=== PATIENT | male | born 1955 | race Caucasian/White ===

== ENCOUNTER → 2023-01-04 | Outpatient (CLI) | payer OTHER ==
[2023-01-04 16:35] LABS: African American GFR (CKD) >90 (>60 ml/min/1.73 sqM); Blood Urea Nitrogen 16 mg/dL (9-20); Non-African American GFR(CKD) >90 (>60 ml/min/1.73 sqM)
--- NOTE | 2023-01-04 23:30 | CT ---
EXAMINATION TYPE: CT abdomen wo/w con DATE OF EXAM: 01/04/2023 COMPARISON: None available. HISTORY: Hiatus hernia, epigastric pain and LLQ pain. CT DLP: 1480.6 mGycm Automated exposure control for dose reduction was used. TECHNIQUE: Helical acquisition of images was performed from the lung bases through the top of iliac crest to include entire abdomen. CONTRAST: Performed with Oral Contrast and with IV Contrast, patient injected with 100 ml mL of Isovue 300. FINDINGS: LOWER CHEST : The visualized lung bases are clear. There are no pleural or pericardial effusions. ABDOMEN: Liver and Biliary system: Normal. Adrenal glands: Normal. Kidneys and ureters: There is a 2 and 5 mm nonobstructing stone in the upper pole of the right kidne y. The kidneys and ureters otherwise appear unremarkable. Spleen: Multiple calcified granulomas are seen within the spleen. Pancreas: Normal. Gallbladder: Several gallstones are seen within the gallbladder. Lymph nodes, Peritoneum and mesentery: There is no mesenteric or retroperitoneal lymphadenopathy. Gastrointestinal tract: There are no dilated loops of bowel or free intraperitoneal air. . The appe ndix is normal. There is mild sigmoid colonic diverticulosis without evidence of diverticulitis. Aorta/IVC: No aortic aneurysm.. IVC normal. Abdominal wall: Normal. BONES: There are no osseous destructive lesions.. ADDITIONAL SIGNIFICANT FINDINGS: None. IMPRESSION: 1. Nonobstructing right renal stones.. 2. No bowel obstruction or appendicitis. 3. Cholelithiasis. 4. Diverticulosis without evidence of diverticulitis.
== END | disposition home or self-care (01) ==
LOC: RADCTMAIN 15:54
PROVIDERS: ATTEND Family Medicine
DX: N20.0 Calculus of kidney (principal); K80.20 Calculus of gallbladder without cholecystitis without obstruction; K44.9 Diaphragmatic hernia without obstruction or gangrene; M62.08 Separation of muscle (nontraumatic), other site; R10.13 Epigastric pain
CPT/HCPCS: 82565; 84520; 74170; 36415; Q9967

== ENCOUNTER → 2023-02-13 | Outpatient (CLI) | payer MEDICARE ==
--- NOTE | 2023-02-14 13:15 | CA ---
Exercise Stress Test Report Name: Mitch Giron Exam Date: 02/13/2023 11:13 Exam Location: [facility] Ht (in): 67 Wt (lb): 188 BSA: 1.97 Ordering Phys: Michael Worthy DO Referring Phys: BRYNN,, Technologist: Adams Garcia Age: 68 Gender: M : 1955 Procedure CPT: Indications: I10 ESSENTIAL (PRIMARY) HYPERTENSION ICD-10 Codes: Patient History: CHEST PAIN, DIFFICULTY IN BREATHING, HTN, ELEVATED CHOLESTEROL LEVELS, ASTHMA Medications: LISINOPRIL, ATORVASTATIN Meds past 24 hrs: Pretest Chest Pain: STRESS TEST Kush Protocol Exercise Duration (min:sec): 09:[address] Depressions (mm): Angina Score: Puckett Score: Resting HR (bpm): 84 Peak HR (bpm): 150 Resting BP (mmHg): 123 / 85 Peak BP (mmHg): 207 / 84 MPHR: 153 Target HR: 130 % MPHR: 98 METS: 10.7 Total Dose: Peak Dose: Atropine: Double Product: 16983 BP Response: Stress Termination: TARGET HR/MAX EXERTION Stress Symptoms: NO SYMPTOMS Stress Summary: The patient's target heart rate was achieved, The hemodynamic response to exercise was normal ECG ANALYSIS Resting ECG: Sinus rhythm. Normal conduction. No arrhythmias. Normal repolarization. Stress EC mm ST upsloping change in the inferolateral leads. CONCLUSIONS 1. Good exercise tolerance 2. Mildly positive electrocardiographic stress test with no symptoms 3. If clinically indicated an imaging stress test will be helpful Dr. Emilee Olvera MD (Electronically Signed) Final Date: 14 February 2023 13:14
== END | disposition home or self-care (01) ==
LOC: RADNMMAIN 10:42
PROVIDERS: ATTEND Family Medicine
DX: I10 Essential (primary) hypertension (principal); E78.2 Mixed hyperlipidemia; R06.02 Shortness of breath
CPT/HCPCS: 93017

== ENCOUNTER 2024-01-25 00:32 | Inpatient (IN) | payer MEDICARE, OTHER ==
--- NOTE | 2024-01-25 01:22 | ED ---
Abdominal Pain HPI - General Source: patient, RN notes reviewed Mode of arrival: ambulatory Limitations: no limitations <Alana Beasley - Last Filed: 01/25/24 02:55> <Hayden Clement - Last Filed: 01/25/24 22:37> - General Chief Complaint: Abdominal Pain Stated Complaint: Abominal Pain/Chest Pain Time Seen by Provider: 01/25/24 01:22 - History of Present Illness Initial Comments: 69-year-old male presenting to the ER with a chief complaint of epigastric abdominal pain. Patient is following up with Dr. Monahan for hiatal hernia and gallstones. Patient states after eating supper tonight he started to experience extreme pain to his epigastric region. He denies any radiation of the pain. He reports he did have a bowel movement which was "normal. Denies any melena or hematochezia. Patient also reports he made himself throw up to see if that would help with the pain. Patient did take 1 Tums without relief. He denies any chest pain, shortness of breath, dizziness, lightheadedness, urinary complaints or peripheral edema. (Alana Beasley) - Related Data Home Medications Medication Instructions Recorded Confirmed Atorvastatin [Lipitor] 20 mg PO HS 01/25/24 01/25/24 Escitalopram [Lexapro] 10 mg PO DAILY 01/25/24 01/25/24 hydroCHLOROthiazide [Hydrodiuril] 25 mg PO DAILY 01/25/24 01/25/24 traZODone HCL [Desyrel] 50 - 75 mg PO HS 01/25/24 01/25/24 Allergies Allergy/AdvReac Type Severity Reaction Status Date / Time codeine AdvReac Nausea & Verified 01/25/24 12:44 Vomiting Review of Systems ROS Other: All systems not noted in ROS Statement are negative. <Alana Beasley - Last Filed: 01/25/24 02:55> ROS Other: All systems not noted in ROS Statement are negative. <Hayden Clement - Last Filed: 01/25/24 22:37> ROS Statement: Those systems with pertinent positive or pertinent negative responses have been documented in the HPI. Past Medical History Additional Past Medical History / Comment(s): kidney stones, gallstones, hiatal hernia History of Any Multi-Drug Resistant Organisms: None Reported Past Surgical History: Tonsillectomy Additional Past Surgical History / Comment(s): nose surgery, mastoid surgery Past Psychological History: No Psychological Hx Reported Smoking Status: Never smoker Past Alcohol Use History: None Reported Past Drug Use History: None Reported <Alana Beasley - Last Filed: 01/25/24 02:55> General Exam Limitations: no limitations General appearance: alert, in no apparent distress Respiratory exam: Present: normal lung sounds bilaterally. Absent: respiratory distress, wheezes, rales, rhonchi, stridor Cardiovascular Exam: Present: regular rate, normal rhythm, normal heart sounds. Absent: systolic murmur, diastolic murmur, rubs, gallop, clicks GI/Abdominal exam: Present: soft, tenderness (epigastric ), normal bowel sounds Extremities exam: Present: normal inspection, full ROM, normal capillary refill. Absent: tenderness, pedal edema, joint swelling, calf tenderness Neurological exam: Present: alert, oriented X3, CN II-XII intact Skin exam: Present: warm, dry, intact, normal color. Absent: rash <Adore Beasleynn - Last Filed: 01/25/24 02:55> General appearance: alert, in no apparent distress Head exam: Present: atraumatic, normocephalic, normal inspection Eye exam: Present: normal appearance, PERRL, EOMI. Absent: scleral icterus, conjunctival injection, periorbital swelling ENT exam: Present: normal exam, mucous membranes moist Neck exam: Present: normal inspection. Absent: tenderness, meningismus, lymphadenopathy Respiratory exam: Present: normal lung sounds bilaterally. Absent: respiratory distress, wheezes, rales, rhonchi, stridor Cardiovascular Exam: Present: regular rate, normal rhythm, normal heart sounds. Absent: systolic murmur, diastolic murmur, rubs, gallop, clicks GI/Abdominal exam: Present: soft, normal bowel sounds. Absent: distended, tenderness, guarding, rebound, rigid Extremities exam: Present: normal inspection, full ROM, normal capillary refill. Absent: tenderness, pedal edema, joint swelling, calf tenderness Back exam: Present: normal inspection Neurological exam: Present: alert, oriented X3, CN II-XII intact Psychiatric exam: Present: normal affect, normal mood Skin exam: Present: warm, dry, intact, normal color. Absent: rash <Hayden Clement - Last Filed: 01/25/24 22:37> Course <Hayden Clement - Last Filed: 01/25/24 22:37> Vital Signs 01/25/24 01/25/24 00:33 05:29 Temperature 97.7 F Pulse Rate 66 66 Respiratory 18 18 Rate Blood Pressure 169/93 144/90 O2 Sat by Pulse 100 95 Oximetry - Reevaluation(s) Reevaluation #1: Records reviewed (Hayden Clement) Reevaluation #2: Patient symptoms improving (Hayden Clement) - Consultations Consultation #1: Spoke with on-call surgery who will observe this patient (Hayden Clement) Medical Decision Making - Lab Data Result diagrams: 01/25/24 01:42 01/25/24 01:42 - EKG Data -: EKG Interpreted by Me <Alana Beasley - Last Filed: 01/25/24 02:55> - Lab Data Result diagrams: 01/25/24 05:29 01/25/24 05:29 - Radiology Data Radiology results: report reviewed (CT abdomen pelvis positive for cholecystitis), image reviewed <Hayden Clement - Last Filed: 01/25/24 22:37> - Medical Decision Making Was pt. sent in by a medical professional or institution (Dr. PA, OFFSET LABEL REWINDER, urgent care, hospital, or intermediate...) When possible be specific @ -No Did you speak to anyone other than the patient for history (EMS, parent, family, police, friend...)? What history was obtained from this source @ -No Did you review nursing and triage notes (agree or disagree)? Why? @ -I reviewed and agree with nursing and triage notes Were old charts reviewed (outside hosp., previous admission, EMS record, old EKG, old radiological studies, urgent care reports/EKG's, intermediate records)? Report findings @ -No old charts were reviewed Differential Diagnosis (chest pain, altered mental status, abdominal pain women, abdominal pain men, vaginal bleeding, weakness, fever, dyspnea, syncope, headache, dizziness, GI bleed, back pain, seizure, CVA, palpatations, mental health, musculoskeletal)? @ -Differential Abdominal Pain Men:Appendicitis, cholecystitis, diverticulosis, ischemic bowel, pancreatitis, hepatitis, UTI, gastroenteritis, AAA, incarcerated hernia, bowel obstruction, constipation, inflammatory bowel, hepatitis, peptic ulcer disease, splenic infarction, perforated viscus, testicular torsion, this is not meant to be an all-inclusive list EKG interpreted by me (3pts min.). @ -As above X-rays interpreted by me (1pt min.). @ -None done CT interpreted by me (1pt min.). @ -Pending U/S interpreted by me (1pt. min.). @ -None done What testing was considered but not performed or refused? (CT, X-rays, U/S, labs)? Why? @ -None What meds were considered but not given or refused? Why? @ -None Did you discuss the management of the patient with other professionals (professionals i.e. , PA, OFFSET LABEL REWINDER, lab, RT, psych nurse, rn social work, rate examiner, te acher, railway patrol officer, case picker)? Give summary @ -No Was smoking cessation discussed for >3mins.? @ -No Was critical care preformed (if so, how long)? @ -No Were there social determinants of health that impacted care today? How? (Homelessness, low income, unemployed, alcoholism, drug addiction, transportation, low edu. Level, literacy, decrease access to med. care, prison, rehab)? @ -No Was there de-escalation of care discussed even if they declined (Discuss DNR or withdrawal of care, Hospice)? DNR status @ -No What co-morbidities impacted this encounter? (DM, HTN, Smoking, COPD, CAD, C ancer, CVA, ARF, Chemo, Hep., AIDS, mental health diagnosis, sleep apnea, morbid obesity)? @ -None Was patient admitted / discharged? Hospital course, mention meds given and route, prescriptions, significant lab abnormalities, going to OR and other pertinent info. @ -69-year-old male presented to ER with a chief complaint of epigastric abdominal pain. History and physical exam completed. Vitals within normal limits. Patient in no signs of acute distress. Exquisite tender to epigastric region. Normal bowel sounds. No rebound or guarding. Laboratory studies and CT obtained. Patient received IV toradol, zofran and IV fluids. Patient signed out to Dr. Clement at shift completion pending CT results and disposition. (Alana Beasley) 69 male with known gallbladder colic coming in for gallbladder pain with CT evidence of cholecystitis (Hayden Clement) - Lab Data Lab Results 01/25/24 01/25/24 01/25/24 Range/Units 01:42 01:42 01:42 WBC 11.5 H (3.8-10.6) k/uL RBC 4.80 (4.30-5.90) m/uL Hgb 14.6 (13.0-17.5) gm/dL Hct 43.0 (39.0-53.0) % MCV 89.7 (80.0-100.0) fL MCH 30.5 (25.0-35.0) pg MCHC 34.0 (31.0-37.0) g/dL RDW 12.7 (11.5-15.5) % Plt Count 299 (150-450) k/uL MPV 6.5 Neutrophils % 81 % Lymphocytes % 10 % Monocytes % 5 % Eosinophils % 2 % Basophils % 0 % Neutrophils # 9.3 H (1.3-7.7) k/uL Lymphocytes # 1.1 (1.0-4.8) k/uL Monocytes # 0.6 (0-1.0) k/uL Eosinophils # 0.2 (0-0.7) k/uL Basophils # 0.0 (0-0.2) k/uL Sodium 137 (137-145) mmol/L Potassium 3.7 (3.5-5.1) mmol/L Chloride 108 H (98-107) mmol/L Carbon Dioxide 23 (22-30) mmol/L Anion Gap 6 mmol/L BUN 24 H (9-20) mg/dL Creatinine 0.99 (0.66-1.25) mg/dL Est GFR (CKD-EPI)AfAm >90 (>60 ml/min/1.73 sqM) Est GFR (CKD-EPI)NonAf 78 (>60 ml/min/1.73 sqM) Glucose 117 H (74-99) mg/dL Plasma Lactic Acid Basim 1.7 (0.7-2.0) mmol/L Calcium 9.5 (8.4-10.2) mg/dL Total Bilirubin 0.8 (0.2-1.3) mg/dL AST 26 (17-59) U/L ALT 27 (4-49) U/L Alkaline Phosphatase 59 (38-126) U/L Total Protein 6.5 (6.3-8.2) g/dL Albumin 4.1 (3.5-5.0) g/dL Amylase 56 (30-110) U/L Lipase 89 (23-300) U/L Urine Color Urine Appearance (Clear) Urine pH (5.0-8.0) Ur Specific [place] (1.001-1.035) Urine Protein (Negative) Urine Glucose (UA) (Negative) Urine Ketones (Negative) Urine Blood (Negative) Urine Nitrite (Negative) Urine Bilirubin (Negative) Urine Urobilinogen (<2.0) mg/dL Ur Leukocyte Esterase (Negative) 01/25/24 Range/Units 02:01 WBC (3.8-10.6) k/uL RBC (4.30-5.90) m/uL Hgb (13.0-17.5) gm/dL Hct (39.0-53.0) % MCV (80.0-100.0) fL MCH (25.0-35.0) pg MCHC (31.0-37.0) g/dL RDW (11.5-15.5) % Plt Count (150-450) k/uL MPV Neutrophils % % Lymphocytes % % Monocytes % % Eosinophils % % Basophils % % Neutrophils # (1.3-7.7) k/uL Lymphocytes # (1.0-4.8) k/uL Monocytes # (0-1.0) k/uL Eosinophils # (0-0.7) k/uL Basophils # (0-0.2) k/uL Sodium (137-145) mmol/L Potassium (3.5-5.1) mmol/L Chloride (98-107) mmol/L Carbon Dioxide (22-30) mmol/L Anion Gap mmol/L BUN (9-20) mg/dL Creatinine (0.66-1.25) mg/dL Est GFR (CKD-EPI)AfAm (>60 ml/min/1.73 sqM) Est GFR (CKD-EPI)NonAf (>60 ml/min/1.73 sqM) Glucose (74-99) mg/dL Plasma Lactic Acid Basim (0.7-2.0) mmol/L Calcium (8.4-10.2) mg/dL Total Bilirubin (0.2-1.3) mg/dL AST (17-59) U/L ALT (4-49) U/L Alkaline Phosphatase (38-126) U/L Total Protein (6.3-8.2) g/dL Albumin (3.5-5.0) g/dL Amylase (30-110) U/L Lipase (23-300) U/L Urine Color Colorless Urine Appearance Clear (Clear) Urine pH 7.0 (5.0-8.0) Ur Specific [place] 1.021 (1.001-1.035) Urine Protein Negative (Negative) Urine Glucose (UA) Negative (Negative) Urine Ketones Negative (Negative) Urine Blood Negative (Negative) Urine Nitrite Negative (Negative) Urine Bilirubin Negative (Negative) Urine Urobilinogen <2.0 (<2.0) mg/dL Ur Leukocyte Esterase Negative (Negative) - EKG Data EKG Comments: EKG taken at 1: 19 showing a normal sinus rhythm with no acute ST segment abnormalities. Inverted T waves in lead III. Ventricular rate 62, OK interval 122, QRS duration 91, QT/QTc 411/415. (Alana Beasley) Disposition <Alana Beasley - Last Filed: 01/25/24 02:55> Is patient prescribed a controlled substance at d/c from ED?: No <Hayden Clement - Last Filed: 01/25/24 22:37> Clinical Impression: Abdominal pain, Cholecystitis Disposition: ADMITTED IP TO THIS HOSP Condition: Good
[2024-01-25] MEDS: ONDANSETRON 4 MG/2 ML VIAL IVP STA (01:58)
[2024-01-25] MEDS: KETOROLAC 15 MG/ML 1 ML VIAL IVP STA (01:58)
[2024-01-25] MEDS: SODIUM CHLORIDE 0.9% 1,000 ML IV STA (01:59)
[2024-01-25 02:01] LABS: Basophils % (A) 0 %; Eosinophils # (A) 0.2 k/uL (0-0.7); Eosinophils % (A) 2 %; HGB 14.6 gm/dL (13.0-17.5); Lymphocytes # (A) 1.1 k/uL (1.0-4.8); Lymphocytes % (A) 10 %; MCH 30.5 pg (25.0-35.0); MCV 89.7 fL (80.0-100.0); Mean Platelet Volume 6.5; Monocytes # (A) 0.6 k/uL (0-1.0); Monocytes % (A) 5 %; Neutrophils # (A) 9.3 k/uL (1.3-7.7); Neutrophils % (A) 81 %; Platelet Count 299 k/uL (150-450); RDW 12.7 % (11.5-15.5); WBC 11.5 k/uL (3.8-10.6)
[2024-01-25 02:12] LABS: ALT 27 U/L (4-49); AST 26 U/L (17-59); African American GFR (CKD) >90 (>60 ml/min/1.73 sqM); Albumin 4.1 g/dL (3.5-5.0); Alkaline Phosphatase 59 U/L (38-126); Amylase 56 U/L (30-110); Anion Gap 6 mmol/L; Blood Urea Nitrogen 24 mg/dL (9-20); Calcium 9.5 mg/dL (8.4-10.2); Carbon Dioxide 23 mmol/L (22-30); Chloride 108 mmol/L (98-107); Glucose 117 mg/dL (74-99); Lipase 89 U/L (23-300); Non-African American GFR(CKD) 78 (>60 ml/min/1.73 sqM); Potassium 3.7 mmol/L (3.5-5.1); Sodium 137 mmol/L (137-145); Total Bilirubin 0.8 mg/dL (0.2-1.3); Total Protein 6.5 g/dL (6.3-8.2)
[2024-01-25 03:08] LABS: Appearance,Urine Clear (Clear); Bilirubin,Urine Negative (Negative); Blood,Urine Negative (Negative); Color,Urine Colorless; Glucose,Urine (UA) Negative (Negative); Ketones,Urine Negative (Negative); Leukocyte Esterase,Urine Negative (Negative); Nitrite,Urine Negative (Negative); Protein,Urine Negative (Negative); Specific Gravity,Urine 1.021 (1.001-1.035); Urobilinogen,Urine <2.0 mg/dL (<2.0)
--- NOTE | 2024-01-25 03:37 | CT ---
EXAM: CT Abdomen and Pelvis With Intravenous Contrast CLINICAL HISTORY: ITS.REASON CT Reason: epigastric abd pain TECHNIQUE: Axial computed tomography images of the abdomen and pelvis with intravenous contrast. CTDI is 9.3 mGy and DLP is 526.2 mGy-cm. This CT exam was performed using one or more of the following dose reduction techniques: automated exposure control, adjustment of the mA and/or kV according to patient size, and/or use of iterative reconstruction technique. COMPARISON: No previous studies. FINDINGS: Lung bases: COPD. Scarring and subsegmental atelectasis near the lung bases. Heart: Mild cardiomegaly. Mediastinum: Possible distal esophagitis. ABDOMEN: Liver: Fatty liver. Gallbladder and bile ducts: Inflammatory changes wall thickening and pericholecystic fluid noted raising concern for acute cholecystitis. Surgical consultation is advised. Cholelithiasis. Additionally, a 0.3 cm gallstone is noted within the cystic duct seen on coronal image 38. Pancreas: See below. Spleen: Unremarkable. No splenomegaly. Adrenals: Adrenal glands, the head, body, tail of the pancreas are unremarkable. Kidneys and ureters: Nonobstructing right renal cacti the largest of which measures 0.6 cm in extent. Nonspecific stranding about the perinephric spaces. Stomach and bowel: Moderate atrophy of stool throughout the colon. Diverticulosis without diverticulitis. No obstruction. PELVIS: Appendix: No findings to suggest acute appendicitis. Bladder: Unremarkable. No mass. Reproductive: Enlargement energies prostate gland. ABDOMEN and PELVIS: Intraperitoneal space: Unremarkable. No free air. No significant fluid collection. Bones/joints: No acute fracture. No dislocation. No spondylolysis. Soft tissues: Ischiorectal fat is clean. Vasculature: Portal vein is patent. Flow is noted within the celiac, SMA, the renal arteries, and JEFFERSON. Atherosclerotic disease of the abdominal area without change in caliber. No abdominal aortic aneurysm. Lymph nodes: Unremarkable. No retroperitoneal lymphadenopathy. IMPRESSION: 1. There is cholelithiasis. 2. Wall thickening of the gallbladder. 3. Inflammatory changes about the gallbladder and pericholecystic fluid. 4. Findings are most compatible with acute cholecystitis. 5. Surgical consultation is advised. 6. Additionally, there is a gallstone within the cystic duct is seen on coronal image 38.
[2024-01-25] MEDS: AMPICILLIN-SULBACTAM 3 GM in SODIUM CHLORIDE 0.9% 100 ML IVPB STA (04:44)
[2024-01-25] MEDS: HYDROmorphone 1 MG/ML 1 ML SYRINGE IVP STA (04:44)
[2024-01-25] MEDS ORDERED: NALOXONE 0.4 MG/ML 1 ML VIAL IV PRN (04:57)
[2024-01-25] MEDS: SODIUM CHLORIDE 0.9% 1,000 ML IV SCH (05:29)
[2024-01-25 06:04] LABS: Basophils % (A) 0 %; Eosinophils # (A) 0.3 k/uL (0-0.7); Eosinophils % (A) 3 %; HCT 38.7 % (39.0-53.0); HGB 13.7 gm/dL (13.0-17.5); Lymphocytes # (A) 1.5 k/uL (1.0-4.8); Lymphocytes % (A) 16 %; MCH 32.1 pg (25.0-35.0); MCHC 35.5 g/dL (31.0-37.0); MCV 90.5 fL (80.0-100.0); Mean Platelet Volume 7.1; Monocytes # (A) 0.6 k/uL (0-1.0); Monocytes % (A) 6 %; Neutrophils % (A) 73 %; Platelet Count 267 k/uL (150-450); RBC 4.28 m/uL (4.30-5.90); RDW 12.7 % (11.5-15.5); WBC 9.5 k/uL (3.8-10.6)
[2024-01-25 07:08] LABS: ALT 23 U/L (4-49); AST 25 U/L (17-59); African American GFR (CKD) >90 (>60 ml/min/1.73 sqM); Albumin 3.5 g/dL (3.5-5.0); Alkaline Phosphatase 49 U/L (38-126); Anion Gap 5 mmol/L; Blood Urea Nitrogen 24 mg/dL (9-20); Calcium 8.6 mg/dL (8.4-10.2); Carbon Dioxide 23 mmol/L (22-30); Chloride 108 mmol/L (98-107); Glucose 106 mg/dL (74-99); Magnesium 2.1 mg/dL (1.6-2.3); Non-African American GFR(CKD) >90 (>60 ml/min/1.73 sqM); Phosphorus 3.3 mg/dL (2.5-4.5); Potassium 3.8 mmol/L (3.5-5.1); Sodium 136 mmol/L (137-145); Total Bilirubin 0.8 mg/dL (0.2-1.3); Total Protein 5.8 g/dL (6.3-8.2)
--- NOTE | 2024-01-25 10:09 | US ---
EXAMINATION TYPE: US gallbladder DATE OF EXAM: 01/25/2024 COMPARISON: NONE CLINICAL INDICATION: Male, 69 years old with history of pain; Pain TECHNIQUE: Grayscale and color Doppler imaging of the right upper quadrant was performed. FINDINGS: EXAM MEASUREMENTS: Liver Length: 14.1 cm Gallbladder Wall: .5 cm CBD: .5 cm Right Kidney: 11.8 x 4.8 x 3.9 cm Pancreas: Obscured by bowel gas Liver: Increased attenuation Gallbladder: Stones seen thickened wall pericholecystic fluid seen. Evidence for sonographic Kendrick's sign: no CBD: limited due to bowel gas stone on ct scan not seen on ultrasound. Right Kidney: wnl IMPRESSION: 1. Gallstones with minimal pericholecystic fluid and gallbladder wall thickening. The sonographic Mur phy sign is negative. There is no biliary ductal dilatation. 2. Pancreas not evaluated and is obscured by bowel gas. 3. Unremarkable liver and right kidney. [facility], , 01/25/2024 10:07 AM
--- NOTE | 2024-01-25 11:24 | P.GSHP ---
History of Present Illness H&P Date: 01/25/24 69-year-old male presenting to the ER with a chief complaint of epigastric abdominal pain. Patient states after eating dinner tonight he started to experience extreme pain to his epigastric region. He denies any radiation of the pain. He reports he did have a bowel movement which was "normal. Denies any melena or hematochezia. Patient also reports he made himself throw up to see if that would help with the pain. Patient did take 1 Tums without relief. He denies any chest pain, shortness of breath, dizziness, lightheadedness, urinary complaints or peripheral edema. He had a CT-AP which showed gallbladder wall thickening and stones concerning for cholecystitis Review of Systems ROS Other: All systems not noted in ROS Statement are negative. Past Medical History Additional Past Medical History / Comment(s): kidney stones, gallstones, hiatal hernia History of Any Multi-Drug Resistant Organisms: None Reported Past Surgical History: Tonsillectomy Additional Past Surgical History / Comment(s): nose surgery, mastoid surgery Past Psychological History: No Psychological Hx Reported Smoking Status: Never smoker Past Alcohol Use History: None Reported Past Drug Use History: None Reported General Exam Limitations: no limitations General appearance: alert, in no apparent distress Respiratory exam: Present: normal lung sounds bilaterally. Absent: respiratory distress, wheezes, rales, rhonchi, stridor Cardiovascular Exam: Present: regular rate, normal rhythm, normal heart sounds. Absent: systolic murmur, diastolic murmur, rubs, gallop, clicks GI/Abdominal exam: Present: soft, tenderness (epigastric ), normal bowel sounds Extremities exam: Present: normal inspection, full ROM, normal capillary refill. Absent: tenderness, pedal edema, joint swelling, calf tenderness Neurological exam: Present: alert, oriented X3, CN II-XII intact Skin exam: Present: warm, dry, intact, normal color. Absent: rash 69 year old male with cholecystitis -Plan for Cholecystectomy 01/25 -LFD, NPO/midnight -US pending -Unasyn -Pain and Nausea Control -Medicine consult for medical management Jose A Harp DO [facility] [phone] Past Medical History Additional Past Medical History / Comment(s): kidney stones, gallstones, hiatal hernia History of Any Multi-Drug Resistant Organisms: None Reported Past Surgical History: Tonsillectomy Additional Past Surgical History / Comment(s): nose surgery, mastoid surgery Past Psychological History: No Psychological Hx Reported Smoking Status: Never smoker Past Alcohol Use History: None Reported Past Drug Use History: None Reported Medications and Allergies Allergies Allergy/AdvReac Type Severity Reaction Status Date / Time codeine AdvReac Nausea & Verified 01/25/24 00:38 Vomiting Surgical - Exam Vital Signs Temp Pulse Resp BP Pulse Ox 97.7 F 66 18 169/93 100 01/25/24 00:33 01/25/24 00:33 01/25/24 00:33 01/25/24 00:33 01/25/24 00:33 Results - Labs 01/25/24 05:29 01/25/24 05:29 Abnormal Lab Results - Last 24 Hours (Table) 01/25/24 01/25/24 01/25/24 Range/Units 01:42 01:42 05:29 WBC 11.5 H (3.8-10.6) k/uL RBC 4.28 L (4.30-5.90) m/uL Hct 38.7 L (39.0-53.0) % Neutrophils # 9.3 H (1.3-7.7) k/uL Sodium (137-145) mmol/L Chloride 108 H (98-107) mmol/L BUN 24 H (9-20) mg/dL Glucose 117 H (74-99) mg/dL Total Protein (6.3-8.2) g/dL 01/25/24 Range/Units 05:29 WBC (3.8-10.6) k/uL RBC (4.30-5.90) m/uL Hct (39.0-53.0) % Neutrophils # (1.3-7.7) k/uL Sodium 136 L (137-145) mmol/L Chloride 108 H (98-107) mmol/L BUN 24 H (9-20) mg/dL Glucose 106 H (74-99) mg/dL Total Protein 5.8 L (6.3-8.2) g/dL Diabetes panel 01/25/24 01/25/24 Range/Units 01:42 05:29 Sodium 137 136 L (137-145) mmol/L Potassium 3.7 3.8 (3.5-5.1) mmol/L Chloride 108 H 108 H (98-107) mmol/L Carbon Dioxide 23 23 (22-30) mmol/L BUN 24 H 24 H (9-20) mg/dL Creatinine 0.99 0.83 (0.66-1.25) mg/dL Glucose 117 H 106 H (74-99) mg/dL Calcium 9.5 8.6 (8.4-10.2) mg/dL AST 26 25 (17-59) U/L ALT 27 23 (4-49) U/L Alkaline Phosphatase 59 49 (38-126) U/L Total Protein 6.5 5.8 L (6.3-8.2) g/dL Albumin 4.1 3.5 (3.5-5.0) g/dL Calcium panel 01/25/24 01/25/24 Range/Units 01:42 05:29 Calcium 9.5 8.6 (8.4-10.2) mg/dL Phosphorus 3.3 (2.5-4.5) mg/dL Albumin 4.1 3.5 (3.5-5.0) g/dL Pituitary panel 01/25/24 01/25/24 Range/Units 01:42 05:29 Sodium 137 136 L (137-145) mmol/L Potassium 3.7 3.8 (3.5-5.1) mmol/L Chloride 108 H 108 H (98-107) mmol/L Carbon Dioxide 23 23 (22-30) mmol/L BUN 24 H 24 H (9-20) mg/dL Creatinine 0.99 0.83 (0.66-1.25) mg/dL Glucose 117 H 106 H (74-99) mg/dL Calcium 9.5 8.6 (8.4-10.2) mg/dL Adrenal panel 01/25/24 01/25/24 Range/Units 01:42 05:29 Sodium 137 136 L (137-145) mmol/L Potassium 3.7 3.8 (3.5-5.1) mmol/L Chloride 108 H 108 H (98-107) mmol/L Carbon Dioxide 23 23 (22-30) mmol/L BUN 24 H 24 H (9-20) mg/dL Creatinine 0.99 0.83 (0.66-1.25) mg/dL Glucose 117 H 106 H (74-99) mg/dL Calcium 9.5 8.6 (8.4-10.2) mg/dL Total Bilirubin 0.8 0.8 (0.2-1.3) mg/dL AST 26 25 (17-59) U/L ALT 27 23 (4-49) U/L Alkaline Phosphatase 59 49 (38-126) U/L Total Protein 6.5 5.8 L (6.3-8.2) g/dL Albumin 4.1 3.5 (3.5-5.0) g/dL
--- NOTE | 2024-01-25 15:50 | P.CONS ---
History of Present Illness - Reason for Consult Consult date: 01/25/24 - History of Present Illness 69 year old M with PMH of HTN, HLD, Insomnia presents to the ED for abdominal pain. Epigastric, started at 6PM last night after finishing dinner. Described as sharp and stabbing, radiating to the back. One episode of nausea and vomiting. No fever or chills. This prompted him to come to the ED. In the ED he underwent extensive evaluation. BP 169/93, HR 66, RR 18, T 97.7F, 100% on RA. CBC, Coag panel, CMP significant for WBC 11.5, Cl 108, BUN 24, glu 117. Lactic acid 1.7. Amylase 56, Lipase 89. UA negative. EKG sinus rhythm. CT AP acute cholecystitis. Surgery consulted, plans for OR tomorrow. General: non toxic, no distress, appears at stated age Derm: warm, dry Head: atraumatic, normocephalic, symmetric Eyes: EOMI, no lid lag, anicteric sclera Mouth: no lip lesion, mucus membranes moist Cardiovascular: S1 S2 reg. No murmurs, rubs, gallops Lungs: Clear to auscultation bilaterally, no accessory muscle use Ext: no gross muscle atrophy, no edema, no contractures Neuro: no focal neuro deficits Psych: Alert, oriented, appropriate affect Based on my assessment of this patient, this patient meets a high complexity level of care. Acute cholecystitis: Unasyn 3g IV TID. Toradol 15 mg IV Q6H PRN. Dilaudid 1 mg IV Q3H PRN. Zofran 4 mg IV TID PRN. NS at 130 cc/hr. Plans for OR tomorrow HTN: HCTZ 12.5 mg PO QD. HLD: Lipitor 20 mg PO QHS. Depression: Lexapro 10 mg PO QD. Insomnia: Trazadone 50 mg PO QHS. CODE STATUS: FULL CODE DVT Prophylaxis: Lovenox SQ GI Prophylaxis: Designated medical POA if patient is not able to make medical decisions for themselves: I have reviewed the following educational consultant notes: Surgery. I have reviewed the results of the following tests: As above. I have ordered the following tests: I have discussed the care of this patient with the following independent historian: DOLLY. I have independently interpreted the following test below: EKG. I have discussed the management of this patient with the following physician: Past Medical History Additional Past Medical History / Comment(s): kidney stones, gallstones, hiatal hernia History of Any Multi-Drug Resistant Organisms: None Reported Past Surgical History: Tonsillectomy Additional Past Surgical History / Comment(s): nose surgery, mastoid surgery Past Psychological History: No Psychological Hx Reported Smoking Status: Never smoker Past Alcohol Use History: None Reported Past Drug Use History: None Reported Medications and Allergies Home Medications Medication Instructions Recorded Confirmed Type Atorvastatin [Lipitor] 20 mg PO HS 01/25/24 01/25/24 History Escitalopram [Lexapro] 10 mg PO DAILY 01/25/24 01/25/24 History hydroCHLOROthiazide [Hydrodiuril] 25 mg PO DAILY 01/25/24 01/25/24 History traZODone HCL [Desyrel] 50 - 75 mg PO HS 01/25/24 01/25/24 History Allergies Allergy/AdvReac Type Severity Reaction Status Date / Time codeine AdvReac Nausea & Verified 01/25/24 12:44 Vomiting Physical Exam Vitals: Vital Signs Temp Pulse Pulse Resp BP BP Pulse Ox 01/25/24 13:55 98.2 F 72 18 137/71 93 L 01/25/24 07:15 97.8 F 64 18 144/73 94 L 01/25/24 05:51 98.0 F 73 145/88 94 L 01/25/24 05:29 66 18 144/90 95 01/25/24 00:33 97.7 F 66 18 169/93 100 Intake and Output 01/25/24 01/25/24 01/25/24 06:59 14:59 22:59 Other: # Voids 0 Weight 79.379 kg Results CBC & Chem 7: 01/25/24 05:29 01/25/24 05:29 Labs: Abnormal Lab Results - Last 24 Hours (Table) 01/25/24 01/25/24 01/25/24 Range/Units 01:42 01:42 05:29 WBC 11.5 H (3.8-10.6) k/uL RBC 4.28 L (4.30-5.90) m/uL Hct 38.7 L (39.0-53.0) % Neutrophils # 9.3 H (1.3-7.7) k/uL Sodium (137-145) mmol/L Chloride 108 H (98-107) mmol/L BUN 24 H (9-20) mg/dL Glucose 117 H (74-99) mg/dL Total Protein (6.3-8.2) g/dL 01/25/24 Range/Units 05:29 WBC (3.8-10.6) k/uL RBC (4.30-5.90) m/uL Hct (39.0-53.0) % Neutrophils # (1.3-7.7) k/uL Sodium 136 L (137-145) mmol/L Chloride 108 H (98-107) mmol/L BUN 24 H (9-20) mg/dL Glucose 106 H (74-99) mg/dL Total Protein 5.8 L (6.3-8.2) g/dL
[2024-01-25] MEDS: hydroCHLOROthiazide 25 MG TAB PO SCH (16:57)
[2024-01-25] MEDS: LORATADINE 10 MG TAB PO SCH (16:57)
[2024-01-25] MEDS: AMPICILLIN-SULBACTAM 3 GM in SODIUM CHLORIDE 0.9% 100 ML IVPB SCH (16:57)
[2024-01-25] MEDS: KETOROLAC 15 MG/ML 1 ML VIAL IVP PRN (21:04)
[2024-01-25] MEDS: traZODone HCL 50 MG TAB PO SCH (21:06)
[2024-01-25] MEDS: DOCUSATE 100 MG CAP PO PRN (21:06)
[2024-01-25] MEDS: ATORVASTATIN 20 MG TAB PO SCH (21:06)
[2024-01-26] MEDS: ENOXAPARIN 40 MG/0.4 ML SYRINGE SQ SCH (08:41)
[2024-01-26] MEDS: ESCITALOPRAM 10 MG TAB PO SCH (08:41)
[2024-01-26 10:00] LABS: Basophils # (A) 0.04 X 10*3/uL (0.00-0.10); Basophils % (A) 0.5 %; Eosinophils # (A) 0.54 X 10*3/uL (0.04-0.35); Eosinophils % (A) 6.1 %; HCT 37.9 % (39.6-50.0); Lymphocytes # (A) 1.78 X 10*3/uL (0.90-5.00); Lymphocytes % (A) 20.2 %; MCH 30.7 pg (27.0-32.0); MCHC 34.3 g/dL (32.0-37.0); MCV 89.4 FL (80.0-97.0); Mean Platelet Volume 8.9 FL (9.5-12.2); Monocytes % (A) 11.4 %; NRBC Per 100 WBC 0 X 10*3/uL (0.00-0.01); Neutrophils # (A) 5.39 X 10*3/uL (1.80-7.70); Neutrophils % (A) 61.2 %; Platelet Count 204 X 10*3/uL (140-440); RBC 4.24 X 10*6/uL (4.40-5.60); RDW 13.2 % (11.5-14.5)
[2024-01-26] MEDS ORDERED: LIDOCAINE 1% INJ 10MG/ML (20 ML MDV) ONE (10:00)
[2024-01-26] MEDS ORDERED: GLYCOPYRROLATE 0.2 MG/ML 2 ML VIAL ONE (10:00)
[2024-01-26] MEDS ORDERED: ROCURONIUM 10 MG/ML (5 ML VIAL) IV ONE (10:00)
[2024-01-26] MEDS ORDERED: SUCCINYLCHOLINE CHLORIDE 200 MG/10 ML VIAL IV ONE (10:00)
[2024-01-26] MEDS ORDERED: fentaNYL (PF) 50 MCG/ML 2 ML AMP ONE (10:00)
[2024-01-26] MEDS ORDERED: HYDROmorphone (PF) 1 MG/ML ONE (10:00)
[2024-01-26] MEDS ORDERED: MIDAZOLAM 2 MG/2 ML VIAL ONE (10:00)
[2024-01-26] MEDS: SODIUM CHLORIDE 0.9% 1,000 ML IV ONE (10:00)
[2024-01-26] MEDS ORDERED: NEOSTIGMINE 1 MG/ML 10 ML VIAL ONE (10:00)
[2024-01-26] MEDS ORDERED: ceFAZolin 1 GM/50 ML BAG (PMX) ONE (10:00)
[2024-01-26] MEDS ORDERED: PROPOFOL 10 MG/ML 20 ML VIAL IV ONE (10:00)
[2024-01-26 10:10] LABS: ALT 19 U/L (10-49); AST 16 U/L (14-35); Albumin 3.4 g/dL (3.8-4.9); Albumin/Globulin Ratio 2.12 Ratio (1.60-3.17); Alkaline Phosphatase 54 U/L (41-126); BUN/Creat Ratio 15.44 Ratio (12.00-20.00); Bilirubin, Conjugated 0.23 mg/dL (0.20-0.40); Bilirubin,Unconjugated 0.57 mg/dL (0.20-1.00); Blood Urea Nitrogen 13.9 mg/dL (9.0-27.0); Calcium 8.2 mg/dL (8.7-10.3); Carbon Dioxide 24.3 mmol/L (21.6-31.8); Chloride 109 mmol/L (96-109); Globulin 1.6 g/dL (1.6-3.3); Glucose 89 mg/dL (70-110); Potassium 3.5 mmol/L (3.5-5.5); Sodium 142 mmol/L (135-145); Total Bilirubin 0.8 mg/dL (0.3-1.2)
--- NOTE | 2024-01-26 10:15 | P.PN ---
Subjective Progress Note Date: 01/26/24 69 year old M with PMH of HTN, HLD, Insomnia presents to the ED for abdominal pain. Epigastric, started at 6PM last night after finishing dinner. Described as sharp and stabbing, radiating to the back. One episode of nausea and vomiting. No fever or chills. This prompted him to come to the ED. In the ED he underwent extensive evaluation. BP 169/93, HR 66, RR 18, T 97.7F, 100% on RA. CBC, Coag panel, CMP significant for WBC 11.5, Cl 108, BUN 24, glu 117. Lactic acid 1.7. Amylase 56, Lipase 89. UA negative. EKG sinus rhythm. CT AP acute cholecystitis. Surgery consulted, plans for OR tomorrow. 01/25 Patient was seen and examined. Abdominal pain well controlled. Plans for surgery today. CBC and CMP significant for RBC 4.24, Hct 37.9, Ca 8.2, alb 3.4. General: non toxic, no distress, appears at stated age Derm: warm, dry Head: atraumatic, normocephalic, symmetric Eyes: EOMI, no lid lag, anicteric sclera Mouth: no lip lesion, mucus membranes moist Cardiovascular: S1 S2 reg. No murmurs, rubs, gallops Lungs: Clear to auscultation bilaterally, no accessory muscle use Ext: no gross muscle atrophy, no edema, no contractures Neuro: no focal neuro deficits Psych: Alert, oriented, appropriate affect Based on my assessment of this patient, this patient meets a high complexity level of care. Acute cholecystitis: Unasyn 3g IV TID. Toradol 15 mg IV Q6H PRN. Dilaudid 1 mg IV Q3H PRN. Zofran 4 mg IV TID PRN. NS at 130 cc/hr. Plans for OR today. HTN: HCTZ 12.5 mg PO QD. HLD: Lipitor 20 mg PO QHS. Depression: Lexapro 10 mg PO QD. Insomnia: Trazadone 50 mg PO QHS. CODE STATUS: FULL CODE DVT Prophylaxis: Lovenox SQ GI Prophylaxis: Designated medical POA if patient is not able to make medical decisions for themselves: I have reviewed the following sec reporting consultant notes: I have reviewed the results of the following tests: CBC, CMP. I have ordered the following tests: I have discussed the care of this patient with the following independent historian: DOLLY. I have independently interpreted the following test below: I have discussed the management of this patient with the following physician: Objective - Vital Signs Vital signs: Vital Signs Temp 98.2 F 01/26/24 07:48 Pulse 83 01/26/24 07:48 Resp 17 01/26/24 07:48 BP 135/75 01/26/24 07:48 Pulse Ox 92 L 01/26/24 07:48 FiO2 Intake & Output 01/25/24 01/26/24 01/26/24 18:59 06:59 18:59 Intake Total 180 Balance 180 Intake: Oral 180 Other: # Voids 2 2 - Labs CBC & Chem 7: 01/26/24 03:46 01/26/24 03:46 Labs: Abnormal Lab Results - Last 24 Hours (Table) 01/26/24 01/26/24 Range/Units 03:46 03:46 RBC 4.24 L (4.40-5.60) X 10*6/uL Hct 37.9 L (39.6-50.0) % MPV 8.9 L (9.5-12.2) FL Immature Gran # 0.05 H (0.00-0.04) X 10*3/uL Eosinophils # 0.54 H (0.04-0.35) X 10*3/uL Calcium 8.2 L (8.7-10.3) mg/dL Total Protein 5.0 L (6.2-8.2) g/dL Albumin 3.4 L (3.8-4.9) g/dL
[2024-01-26] MEDS: BUPIVACAINE (PF) 0.25% 30 ML VIAL SQ ONE (10:23)
[2024-01-26] MEDS: HYDROmorphone 1 MG/ML 1 ML SYRINGE IVP PRN (11:34)
[2024-01-26] MEDS: IV FLUID CONTINUATION 1,000 ML IV ONE (11:55)
[2024-01-26] MEDS: SODIUM CHLORIDE 0.9% 2,000 ML IV ONE (13:42)
[2024-01-26] MEDS: ONDANSETRON 4 MG/2 ML VIAL IVP PRN (13:42)
--- NOTE | 2024-01-26 14:06 | P.OP ---
Date of Procedure: 01/26/24 Preoperative Diagnosis: Acute Cholecystitis Postoperative Diagnosis: Acute Cholecystitis Procedure(s) Performed: Laparoscopic Cholecystectomy Anesthesia: MAC Surgeon: Jose A Harp Pathology: other (Gallbladder) Condition: stable Disposition: PACU Description of Procedure: The patient was brought to the operating suite in placed in the supine position. Anesthesia was given and the patient was intubated. The patient was then prepped and draped in usual sterile fashion. A timeout was performed before the procedure began. An #11 blade was used to make an incision at Colin's point and a 5 mm optiview was used to gain access to the peritoneal cavity. The cavity was insufflated and the patient was positioned. Additional working 5 mm ports were placed on the right side of the patients abdomen and a 12 mm port was placed in the subxiphoid region. The gallbladder was grasped by the infundibulu m and fundus and dissection began. The cystic duct and the cystic artery were identified and isolated. A critical view of safety was obtained. Two clips were placed proximally and two clips were placed distally on both the duct and artery. The duct and the artery were then both divided. A hook cautery was then used to take the gallbladder off of the liver bed. There was good hemostasis. At this point the gallbladder was placed into an endocatch bag and the gallbladder was removed from the abdomen. The ports were removed. Incisions were closed with #4-0 monocryl suture. Skin glue was applied. This concluded the procedure. The patient tolerated the procedure well and was sent to PACU in stable condition.
[2024-01-26 14:28] LABS: Basophils % (A) 0 %; Eosinophils # (A) 0.1 k/uL (0-0.7); Eosinophils % (A) 1 %; HCT 33.2 % (39.0-53.0); Lymphocytes # (A) 1.3 k/uL (1.0-4.8); Lymphocytes % (A) 7 %; MCH 30.8 pg (25.0-35.0); MCHC 33.2 g/dL (31.0-37.0); MCV 92.8 fL (80.0-100.0); Mean Platelet Volume 6.6; Monocytes # (A) 0.8 k/uL (0-1.0); Monocytes % (A) 4 %; Neutrophils # (A) 17.3 k/uL (1.3-7.7); Neutrophils % (A) 88 %; Platelet Count 302 k/uL (150-450); RBC 3.58 m/uL (4.30-5.90); WBC 19.7 k/uL (3.8-10.6)
[2024-01-26] MEDS: HYDROcodone/APAP 10-325MG 1 EACH TAB PO PRN (17:28)
[2024-01-27] MEDS: TAMSULOSIN 0.4 MG CAP.ER.24H PO SCH (09:14)
[2024-01-27 10:02] LABS: Blood Urea Nitrogen 22.5 mg/dL (9.0-27.0); Glucose 134 mg/dL (70-110)
[2024-01-27 10:03] LABS: ALT 121 U/L (10-49); AST 113 U/L (14-35); Albumin 2.9 g/dL (3.8-4.9); Albumin/Globulin Ratio 2.07 Ratio (1.60-3.17); Alkaline Phosphatase 42 U/L (41-126); Bilirubin, Conjugated 0.22 mg/dL (0.20-0.40); Bilirubin,Unconjugated 0.28 mg/dL (0.20-1.00); Calcium 7.2 mg/dL (8.7-10.3); Carbon Dioxide 22.7 mmol/L (21.6-31.8); Chloride 107 mmol/L (96-109); Globulin 1.4 g/dL (1.6-3.3); Potassium 3.7 mmol/L (3.5-5.5); Sodium 138 mmol/L (135-145); Total Bilirubin 0.5 mg/dL (0.3-1.2); Total Protein 4.3 g/dL (6.2-8.2)
[2024-01-27 11:12] LABS: Basophils # (A) 0.01 X 10*3/uL (0.00-0.10); Basophils % (A) 0.1 %; Eosinophils # (A) 0.01 X 10*3/uL (0.04-0.35); Eosinophils % (A) 0.1 %; HCT 25.3 % (39.6-50.0); HGB 8.6 g/dL (13.0-17.0); Lymphocytes # (A) 0.79 X 10*3/uL (0.90-5.00); Lymphocytes % (A) 9.9 %; MCH 30.9 pg (27.0-32.0); Monocytes # (A) 1.02 X 10*3/uL (0.20-1.00); Monocytes % (A) 12.8 %; NRBC Per 100 WBC 0 X 10*3/uL (0.00-0.01); Neutrophils # (A) 6.12 X 10*3/uL (1.80-7.70); Neutrophils % (A) 76.6 %; Platelet Count 206 X 10*3/uL (140-440); RBC 2.78 X 10*6/uL (4.40-5.60); RDW 13.4 % (11.5-14.5); WBC 7.99 X 10*3/uL (4.50-10.00)
--- NOTE | 2024-01-27 12:00 | P.PN ---
Subjective Progress Note Date: 01/27/24 69 year old M with PMH of HTN, HLD, Insomnia presents to the ED for abdominal pain. Epigastric, started at 6PM last night after finishing dinner. Described as sharp and stabbing, radiating to the back. One episode of nausea and vomiting. No fever or chills. This prompted him to come to the ED. In the ED he underwent extensive evaluation. BP 169/93, HR 66, RR 18, T 97.7F, 100% on RA. CBC, Coag panel, CMP significant for WBC 11.5, Cl 108, BUN 24, glu 117. Lactic acid 1.7. Amylase 56, Lipase 89. UA negative. EKG sinus rhythm. CT AP acute cholecystitis. Surgery consulted, patient underwent Laparoscopic Cholecystectomy on 01/25. 01/26 Patient was seen and examined. Reports moderate pain and bloating in his abdomen. No bowel movement not passing gas. Retaining urine overnight requiring straight cath x 2. Started on Flomax. CBC, CMP significant for RBC 2.78, Hg 8.6, Hct 25.3, BUN/Cr 25, glu 134, Ca 7.2, AST 113, ALT 121, alb 2.9. General: non toxic, no distress, appears at stated age Derm: warm, dry Head: atraumatic, normocephalic, symmetric Eyes: EOMI, no lid lag, anicteric sclera Mouth: no lip lesion, mucus membranes moist Cardiovascular: S1 S2 reg. No murmurs, rubs, gallops Lungs: Clear to auscultation bilaterally, no accessory muscle use Abd: Distended. Sluggish BS. Non tender to palpation. Ext: no gross muscle atrophy, no edema, no contractures Neuro: no focal neuro deficits Psych: Alert, oriented, appropriate affect Based on my assessment of this patient, this patient meets a high complexity level of care. Urinary retention: Bladder scan PRN. Start Flomax 0.4 mg PO QD. Acute blood loss anemia which is an expected result of surgery. Transaminitis: Stop Lipitor. Repeat CMP tomorrow AM. Abdominal bloating: Likely from yesterdays surgery. Simethicone added by Surgery. Advised to avoid narcotic pain meds as much as possible. Advised to ambulate. Consider imaging if worsens. Prerenal azotemia: Continue IVF as below. Acute cholecystitis: Status post lap cholecystectomy on 01/25. Unasyn 3g IV TID (D3). Toradol 15 mg IV Q6H PRN. Dilaudid 1 mg IV Q3H PRN. Zofran 4 mg IV TID PRN. NS decreased to 50 cc/hr. HTN: HCTZ 12.5 mg PO QD. HLD: Lipitor on hold. Depression: Lexapro 10 mg PO QD. Insomnia: Trazadone 50 mg PO QHS. CODE STATUS: FULL CODE DVT Prophylaxis: Lovenox SQ GI Prophylaxis: Designated medical POA if patient is not able to make medical decisions for themselves: I have reviewed the following color consultant notes: OR note. I have reviewed the results of the following tests: CBC, CMP. I have ordered the following tests: CBC, BMP, Mag in the AM. I have discussed the care of this patient with the following independent historian: DOLLY. I have independently interpreted the following test below: I have discussed the management of this patient with the following physician: Objective - Vital Signs Vital signs: Vital Signs Temp 98.0 F 01/27/24 08:00 Pulse 88 01/27/24 08:00 Resp 16 01/27/24 08:00 BP 110/86 01/27/24 08:00 Pulse Ox 96 01/27/24 08:00 FiO2 Intake & Output 01/26/24 01/27/24 01/27/24 18:59 06:59 18:59 Intake Total 600 240 Output Total 650 Balance -50 240 Intake: IV 600 Oral 240 Output: Urine 600 Estimated Blood Loss 50 Other: Voiding Method Toilet Toilet Urinal Urinal # Voids 1 - Labs CBC & Chem 7: 01/27/24 02:36 01/27/24 02:36 Labs: Abnormal Lab Results - Last 24 Hours (Table) 01/26/24 01/26/24 01/26/24 Range/Units 03:46 03:46 14:06 WBC 19.7 H (3.8-10.6) k/uL RBC 4.24 L 3.58 L (4.40-5.60) X 10*6/uL Hgb 11.0 L (13.0-17.5) gm/dL Hct 37.9 L 33.2 L (39.6-50.0) % MPV 8.9 L (9.5-12.2) FL Immature Gran # 0.05 H (0.00-0.04) X 10*3/uL Neutrophils # 17.3 H (1.3-7.7) k/uL Eosinophils # 0.54 H (0.04-0.35) X 10*3/uL Calcium 8.2 L (8.7-10.3) mg/dL Total Protein 5.0 L (6.2-8.2) g/dL Albumin 3.4 L (3.8-4.9) g/dL
[2024-01-27] MEDS: SIMETHICONE 40 MG/0.6 ML DROPS 2,000 MG/30 ML BOTTLE PO SCH (12:31)
[2024-01-27] MEDS: KETOROLAC 15 MG/ML 1 ML VIAL IVP SCH (12:31)
--- NOTE | 2024-01-27 15:30 | P.PN ---
Subjective Progress Note Date: 01/27/24 CHIEF COMPLAINT: Acute cholecystitis HISTORY OF PRESENT ILLNESS: Patient is postop day #1 status post laparoscopic cholecystectomy. Patient does report abdominal pain and bloating. He had issues with urinary retention. He had to be straight cathed x 2. He has been started on Flomax. He denies any flatus. Denies any bowel movement. He reports nausea. Afebrile. Mildly tachycardic. WBC is down from 19.7-7.99 Hgb 11-8.6 platelets 206 total bilirubin 0.5 AST and ALT elevated. Patient reports it has been several days since his last bowel movement. Patient did get Lovenox this morning for DVT prophylax PHYSICAL EXAM: VITAL SIGNS: Reviewed. GENERAL: no acute distress. ABDOMEN: Soft. Mildly distended. Minimal tenderness at incision sites. Incision sites clean dry and intact. NEUROLOGIC: Alert and oriented. Cranial nerves II through XII grossly intact. ASSESSMENT: 1. Acute cholecystitis 2. Mildly elevated LFTs possibly reactive from surgery 3. Anemia 4. Urinary retention. Agree with adding Flomax. PLAN: -Toradol initially added for pain control. After reviewing drop in hemoglobin. Toradol will be discontinued. -Add simethicone gas drops -Abdominal binder ordered -Repeat CBC and CMP in a.m. continue to monitor hemoglobin and LFTs -Hold Lovenox for now due to drop in HGB Physician Ball Ender note has been reviewed by physician. Signing provider agrees with the documented findings, assessment, and plan of care. Attestation Patient postoperative day #1 laparoscopic cholecystectomy. Complains of some abdominal distention. Hemoglobin at 8.6. Leukocytosis resolved. Initially had some urinary retention and patient has been urinating after starting Flomax. W ill keep the patient on clear liquid diet for now. Await follow-up laboratory values in the morning. Jaxson Valdivia DO Objective - Vital Signs Vital signs: Vital Signs Temp 98.3 F 01/27/24 13:46 Pulse 102 H 01/27/24 13:46 Resp 17 01/27/24 13:46 BP 116/65 01/27/24 13:46 Pulse Ox 93 L 01/27/24 13:46 FiO2 Intake & Output 01/26/24 01/27/24 01/27/24 18:59 06:59 18:59 Intake Total 900 240 Output Total 650 550 Balance 250 240 -550 Intake: IV 900 Oral 240 Output: Urine 600 550 Estimated Blood Loss 50 Other: Voiding Method Toilet Toilet Urinal Urinal # Voids 1 - Labs CBC & Chem 7: 01/27/24 02:36 01/27/24 02:36 Labs: Abnormal Lab Results - Last 24 Hours (Table) 01/27/24 01/27/24 Range/Units 02:36 02:36 RBC 2.78 L (4.40-5.60) X 10*6/uL Hgb 8.6 L (13.0-17.0) g/dL Hct 25.3 L (39.6-50.0) % MPV 9.0 L (9.5-12.2) FL Lymphocytes # 0.79 L (0.90-5.00) X 10*3/uL Monocytes # 1.02 H (0.20-1.00) X 10*3/uL Eosinophils # 0.01 L (0.04-0.35) X 10*3/uL BUN/Creatinine Ratio 25.00 H (12.00-20.00) Ratio Glucose 134 H (70-110) mg/dL Calcium 7.2 L (8.7-10.3) mg/dL AST 113 H (14-35) U/L ALT 121 H (10-49) U/L Total Protein 4.3 L (6.2-8.2) g/dL Albumin 2.9 L (3.8-4.9) g/dL Globulin 1.4 L (1.6-3.3) g/dL
[2024-01-28 03:50] LABS: MCH 31.7 pg (25.0-35.0); MCHC 35.5 g/dL (31.0-37.0); MCV 89.1 fL (80.0-100.0); Platelet Count 185 k/uL (150-450); RBC 2.18 m/uL (4.30-5.90); RDW 13.6 % (11.5-15.5); WBC 4.8 k/uL (3.8-10.6)
[2024-01-28 03:57] LABS: ALT 99 U/L (4-49); AST 72 U/L (17-59); African American GFR (CKD) >90 (>60 ml/min/1.73 sqM); Albumin 2.5 g/dL (3.5-5.0); Albumin/Globulin Ratio 1.3; Alkaline Phosphatase 37 U/L (38-126); Anion Gap 3 mmol/L; Blood Urea Nitrogen 13 mg/dL (9-20); Calcium 7.5 mg/dL (8.4-10.2); Carbon Dioxide 24 mmol/L (22-30); Chloride 108 mmol/L (98-107); Glucose 87 mg/dL (74-99); Magnesium 2.1 mg/dL (1.6-2.3); Non-African American GFR(CKD) >90 (>60 ml/min/1.73 sqM); Potassium 3.2 mmol/L (3.5-5.1); Sodium 135 mmol/L (137-145); Total Bilirubin 0.8 mg/dL (0.2-1.3); Total Protein 4.5 g/dL (6.3-8.2)
[2024-01-28 04:00] LABS: HGB 6.9 gm/dL (13.0-17.5)
[2024-01-28 04:01] LABS: HCT 19.4 % (39.0-53.0)
[2024-01-28] MEDS: POTASSIUM CHLORIDE ER 20 MEQ TAB.ER PO STA ×2 (09:53)
--- NOTE | 2024-01-28 12:37 | P.PN ---
Subjective Progress Note Date: 01/28/24 Patient seen this morning. He states that last night he had some bleeding on bandage from surgical site. Patient states that he has been urinating well. He denies any bowel movement since surgery. Physical exam General examination - Alert and Oriented 3 in NAD Heart - + S1S2 no murmurs Lungs - Clear to auscultation Abdomen diffuse tenderness to palpate as expected from surgery, hematoma in the right lower quadrant, bandage on surgical incision intact and dry Extremities - No edema REGULATORY ANALYST - Moving all 4 extremities spontaneously Psych - Calm and cooperative Assessment and plan Acute blood loss anemia from surgery Patient does have a hematoma in the right lower quadrant I reviewed surgical note who discontinued Toradol as well as Lovenox Patient's hemoglobin this morning 6.9 Patient transfused 1 unit of PRBC Hypokalemia This morning potassium is 3.2 60 mill equivalents of potassium chloride ordered Urinary retention Resume Flomax 0.4 mg p.o. daily Patient states that he is urinating well Transaminitis Improving Okay to resume Lipitor at discharge Acute cholecystitis status post laparoscopic cholecystectomy on 01/26/2024 Continue with IV Unasyn 3 g every 8 hours General Surgery to manage pain Hypertension Continue hydrochlorothiazide 12.5 mg p.o. daily Hyperlipidemia Okay to resume Lipitor on discharge Depression Continue Lexapro 10 mg p.o. daily Insomnia Continue trazodone 50 mg p.o. at bedtime DVT prophylaxis: Encourage ambulation. Lovenox stopped due to the anemia Objective - Vital Signs Vital signs: Vital Signs Temp 98.6 F 01/28/24 08:14 Pulse 89 01/28/24 08:14 Resp 16 01/28/24 08:14 BP 121/75 01/28/24 08:14 Pulse Ox 95 01/28/24 08:14 FiO2 Intake & Output 01/27/24 01/28/24 01/28/24 18:59 06:59 18:59 Intake Total 0 310 Output Total 550 Balance -550 0 310 Intake: Blood Product 0 310 Rc As-1 Unit 0 310 [id number] Output: Urine 550 Other: # Voids 2 1 - Labs CBC & Chem 7: 01/28/24 02:34 01/28/24 02:34 Labs: Abnormal Lab Results - Last 24 Hours (Table) 01/28/24 01/28/24 01/28/24 Range/Units 02:34 02:34 04:36 RBC 2.18 L (4.30-5.90) m/uL Hgb 6.9 L* D (13.0-17.5) gm/dL Hct 19.4 L* (39.0-53.0) % Sodium 135 L (137-145) mmol/L Potassium 3.2 L (3.5-5.1) mmol/L Chloride 108 H (98-107) mmol/L Calcium 7.5 L (8.4-10.2) mg/dL AST 72 H (17-59) U/L ALT 99 H (4-49) U/L Alkaline Phosphatase 37 L (38-126) U/L Total Protein 4.5 L (6.3-8.2) g/dL Albumin 2.5 L (3.5-5.0) g/dL Crossmatch See Detail
--- NOTE | 2024-01-28 15:47 | P.PN ---
Subjective Progress Note Date: 01/28/24 CHIEF COMPLAINT: Acute cholecystitis HISTORY OF PRESENT ILLNESS: Patient is postop day #2 status post laparoscopic cholecystectomy. Patient reports his abdominal bloating feels better. He is having flatus. No bowel movement. Denies any nausea or vomiting. He is urinating without difficulty. He did have a drop in his hemoglobin from 8.6-6.9 and received 1 unit of blood. Afebrile. Mildly tachycardic. WBC 4.8 Hgb 6.9 platelets 185 potassium is 3.2 LFTs trending downwards PHYSICAL EXAM: VITAL SIGNS: Reviewed. GENERAL: no acute distress. ABDOMEN: Soft. Mildly distended. Bruising noted along the incision site on the right NEUROLOGIC: Alert and oriented. Cranial nerves II through XII grossly intact. ASSESSMENT: 1. Acute cholecystitis 2. Mildly elevated LFTs possibly reactive from surgery and trending downwards 3. Anemia 4. Urinary retention. Agree with adding Flomax. 5. Hypokalemia. Medicine service replace potassium PLAN: -Patient received 1 unit of blood today. Repeat CBC in a.m. -Advance diet to low-fat -Continue abdominal binder -Encourage patient to ambulate -Repeat CBC and CMP in a.m. continue to monitor hemoglobin and LFTs -Hold Lovenox for now due to drop in HGB Physician Technical Photographer note has been reviewed by physician. Signing provider agrees with the documented findings, assessment, and plan of care. Objective - Vital Signs Vital signs: Vital Signs Temp 98.3 F 01/28/24 13:37 Pulse 107 H 01/28/24 13:37 Resp 16 01/28/24 13:37 BP 118/65 01/28/24 13:37 Pulse Ox 93 L 01/28/24 13:37 FiO2 Intake & Output 01/27/24 01/28/24 01/28/24 18:59 06:59 18:59 Intake Total 0 310 Output Total 550 Balance -550 0 310 Intake: Blood Product 0 310 Rc As-1 Unit 0 310 [id number] Output: Urine 550 Other: # Voids 2 1 - Labs CBC & Chem 7: 01/28/24 02:34 01/28/24 02:34 Labs: Abnormal Lab Results - Last 24 Hours (Table) 01/28/24 01/28/24 01/28/24 Range/Units 02:34 02:34 04:36 RBC 2.18 L (4.30-5.90) m/uL Hgb 6.9 L* D (13.0-17.5) gm/dL Hct 19.4 L* (39.0-53.0) % Sodium 135 L (137-145) mmol/L Potassium 3.2 L (3.5-5.1) mmol/L Chloride 108 H (98-107) mmol/L Calcium 7.5 L (8.4-10.2) mg/dL AST 72 H (17-59) U/L ALT 99 H (4-49) U/L Alkaline Phosphatase 37 L (38-126) U/L Total Protein 4.5 L (6.3-8.2) g/dL Albumin 2.5 L (3.5-5.0) g/dL Crossmatch See Detail Assessment and Plan Assessment: 69 yo mal s/p lap aracelis -s/p transfusion -continue to monitor cbc -possible discharge planning in am Time with Patient: Less than 30
[2024-01-29 03:48] LABS: HCT 22.4 % (39.0-53.0); HGB 7.7 gm/dL (13.0-17.5); MCH 31.6 pg (25.0-35.0); MCHC 34.2 g/dL (31.0-37.0); MCV 92.4 fL (80.0-100.0); Mean Platelet Volume 6.6; Platelet Count 212 k/uL (150-450); RBC 2.42 m/uL (4.30-5.90); RDW 13.4 % (11.5-15.5); WBC 5.9 k/uL (3.8-10.6)
[2024-01-29 03:55] LABS: Chloride 107 mmol/L (98-107); Glucose 95 mg/dL (74-99); Potassium 3.5 mmol/L (3.5-5.1); Sodium 136 mmol/L (137-145)
[2024-01-29 03:56] LABS: ALT 78 U/L (4-49); AST 53 U/L (17-59); African American GFR (CKD) >90 (>60 ml/min/1.73 sqM); Albumin 2.9 g/dL (3.5-5.0); Albumin/Globulin Ratio 1.4; Alkaline Phosphatase 50 U/L (38-126); Anion Gap 0 mmol/L; Blood Urea Nitrogen 9 mg/dL (9-20); Calcium 8.3 mg/dL (8.4-10.2); Carbon Dioxide 29 mmol/L (22-30); Globulin 2.1 g/dL; Non-African American GFR(CKD) >90 (>60 ml/min/1.73 sqM); Total Bilirubin 1.1 mg/dL (0.2-1.3)
--- NOTE | 2024-01-29 09:36 | CT ---
EXAMINATION TYPE: CT abdomen pelvis w con CT DLP: 1039.6 mGycm, Automated exposure control for dose reduction was used. DATE OF EXAM: 01/29/2024 9:12 AM COMPARISON: CT abdomen pelvis most recent from 01/25/2024 CLINICAL INDICATION: Male, 69 years old with history of bleeding; rule out postoperative bleed TECHNIQUE: Axial CT abdomen pelvis w con;Sagittal and coronal reformats were created on a separate w orkstation. Contrast used:100 ml mL of Isovue 300 with IV Contrast, (none if empty) Oral contrast used: without Oral Contrast (none if empty) FINDINGS: LOWER CHEST: Bibasilar atelectasis present. The heart is mildly enlarged for size. ABDOMEN LIVER: Unremarkable GALLBLADDER AND BILE DUCTS: The 3 surgically absent gas in the surgical bed. PANCREAS: Unremarkable. SPLEEN: Unremarkable. ADRENAL GLANDS: Unremarkable. KIDNEYS AND URETERS: No evidence of hydronephrosis or renal calculus. The ureters are unremarkable. PELVIS BLADDER: Unremarkable REPRODUCTIVE: Unremarkable. ABDOMEN & PELVIS STOMACH AND BOWEL: No evidence of bowel obstruction. Scattered colonic diverticula. PERITONEUM/RETROPERITONEUM: High density fluid is seen along the liver near the gallbladder fossa. VASCULATURE: No evidence of aortic aneurysm. MUSCULOSKELETAL: No acute osseous abnormalities LYMPH NODES: No gross evidence for lymphadenopathy. SOFT TISSUE/ABDOMINAL WALL: Postsurgical changes to the abdominal wall. There is few areas of suspect ed small hematomas series 201 image 43e IMPRESSION: 1. High density fluid in Morison's pouch around the liver compatible with blood products. 2. There is irregular appearance of the gallbladder possibly compatible with history of post surgica l change. 3. Suspected small subcutaneous hematomas in the right lower flank. 4. Colonic diverticulosis. 5. Atherosclerotic arterial vasculature. 6. Atelectasis in the lung bases. [facility], , 01/29/2024 9:33 AM
--- NOTE | 2024-01-29 11:07 | P.PN ---
Subjective Progress Note Date: 01/29/24 Patient today reports that his abdominal pain is worse. He states that he can now barely even walk. Physical exam General examination - Alert and Oriented 3 in NAD Heart - + S1S2 no murmurs Lungs - Clear to auscultation Abdomen diffuse tenderness to palpate as expected from surgery, hematoma in the right lower quadrant. 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 daily Patient states that he is urinating well Transaminitis Today AST 53, ALT 78 and ALT 50. Improving Okay to resume Lipitor at discharge Acute cholecystitis status post laparoscopic cholecystectomy on 01/26/2024 Continue with IV Unasyn 3 g every 8 hours General Surgery to manage pain Hypertension Continue hydrochlorothiazide 12.5 mg p.o. daily Hyperlipidemia Okay to resume Lipitor on discharge Depression Continue Lexapro 10 mg p.o. daily Insomnia Continue trazodone 50 mg p.o. at bedtime DVT prophylaxis: Encourage ambulation. Lovenox stopped due to the anemia Objective - Vital Signs Vital signs: Vital Signs Temp 98.3 F 01/29/24 07:30 Pulse 83 01/29/24 07:30 Resp 17 01/29/24 07:30 BP 154/75 01/29/24 07:30 Pulse Ox 98 01/29/24 07:30 FiO2 Intake & Output 01/28/24 01/29/24 01/29/24 18:59 06:59 18:59 Intake Total 310 720 Balance 310 720 Intake: Oral 720 Blood Product 310 Rc As-1 Unit 310 [id number] Other: Voiding Method Toilet Urinal # Voids 4 1 - Labs CBC & Chem 7: 01/29/24 02:35 01/29/24 02:35 Labs: Abnormal Lab Results - Last 24 Hours (Table) 01/29/24 01/29/24 Range/Units 02:35 02:35 RBC 2.42 L (4.30-5.90) m/uL Hgb 7.7 L (13.0-17.5) gm/dL Hct 22.4 L (39.0-53.0) % Sodium 136 L (137-145) mmol/L Calcium 8.3 L (8.4-10.2) mg/dL ALT 78 H (4-49) U/L Total Protein 5.0 L (6.3-8.2) g/dL Albumin 2.9 L (3.5-5.0) g/dL
--- NOTE | 2024-01-29 13:14 | P.PN ---
Subjective Progress Note Date: 01/29/24 CHIEF COMPLAINT: Acute cholecystitis HISTORY OF PRESENT ILLNESS: Patient is postop day #3 status post laparoscopic cholecystectomy. Patient is sitting at bedside chair. He did report having more difficulty with walking due to his abdominal pain. He is having flatus. Denies any nausea or vomiting. Afebrile. Vital stable. WBC 5.9 Hgb 6.9-7.7 after 1 unit of blood. Platelets 212 sodium 136 potassium 3.5 creatinine 0.72 total bilirubin 1.1 LFTs trending down. Surgeon ordered CT scan of abdomen and pelvis this AM. Results reported high density fluid in Morison's pouch around the liver compatible with blood products. There is irregular appearance of the gallbladder possible compatible with history of postsurgical change. Suspected small subcutaneous hematomas in the right lower flank. Colonic diverticulosis. PHYSICAL EXAM: VITAL SIGNS: Reviewed. GENERAL: no acute distress. ABDOMEN: Soft. Distended. Ecchymosis along the right side/flank of the abdomen NEUROLOGIC: Alert and oriented. Cranial nerves II through XII grossly intact. ASSESSMENT: 1. Acute cholecystitis 2. Mildly elevated LFTs possibly reactive from surgery and trending downwards 3. Anemia with acute blood loss anemia from surgery. CT scan reported high density fluid in Morison's pouch around liver compatible with blood products. 4. Urinary retention improved PLAN: -IR service consulted for possible drainage of fluid collection around the liver. Per IR service drainage tube is not indicated. -Continue to monitor hemoglobin -Continue to hold Lovenox -Continue low fiber diet -Continue abdominal binder -Continue supportive care Physician Aeronautical Research Engineer note has been reviewed by physician. Signing provider agrees with the documented findings, assessment, and plan of care. Objective - Vital Signs Vital signs: Vital Signs Temp 98.3 F 01/29/24 07:30 Pulse 83 01/29/24 07:30 Resp 17 01/29/24 07:30 BP 154/75 01/29/24 07:30 Pulse Ox 98 01/29/24 07:30 FiO2 Intake & Output 01/28/24 01/29/24 01/29/24 18:59 06:59 18:59 Intake Total 310 720 Balance 310 720 Intake: Oral 720 Blood Product 310 Rc As-1 Unit 310 [id number] Other: Voiding Method Toilet Urinal # Voids 4 1 - Labs CBC & Chem 7: 01/29/24 02:35 01/29/24 02:35 Labs: Abnormal Lab Results - Last 24 Hours (Table) 01/29/24 01/29/24 Range/Units 02:35 02:35 RBC 2.42 L (4.30-5.90) m/uL Hgb 7.7 L (13.0-17.5) gm/dL Hct 22.4 L (39.0-53.0) % Sodium 136 L (137-145) mmol/L Calcium 8.3 L (8.4-10.2) mg/dL ALT 78 H (4-49) U/L Total Protein 5.0 L (6.3-8.2) g/dL Albumin 2.9 L (3.5-5.0) g/dL Assessment and Plan Assessment: 69 yo male s/p lap aracelis -port site bleed, confirmed with ctap -IR refused to drain -continue to trend hgb -pain control
[2024-01-30 10:42] LABS: Basophils # (A) 0.04 X 10*3/uL (0.00-0.10); Basophils % (A) 0.5 %; Eosinophils # (A) 0.44 X 10*3/uL (0.04-0.35); Eosinophils % (A) 5.5 %; HCT 26.4 % (39.6-50.0); HGB 8.9 g/dL (13.0-17.0); Lymphocytes # (A) 1.27 X 10*3/uL (0.90-5.00); Lymphocytes % (A) 15.9 %; MCH 31.6 pg (27.0-32.0); MCHC 33.7 g/dL (32.0-37.0); MCV 93.6 FL (80.0-97.0); Mean Platelet Volume 9.2 FL (9.5-12.2); Monocytes # (A) 0.57 X 10*3/uL (0.20-1.00); Monocytes % (A) 7.1 %; NRBC Per 100 WBC 0 X 10*3/uL (0.00-0.01); Neutrophils # (A) 5.65 X 10*3/uL (1.80-7.70); Neutrophils % (A) 70.6 %; Platelet Count 256 X 10*3/uL (140-440); RBC 2.82 X 10*6/uL (4.40-5.60); RDW 13.6 % (11.5-14.5)
--- NOTE | 2024-01-30 10:44 | P.PN ---
Subjective Progress Note Date: 01/30/24 Patient seen this morning. He still has abdominal pain. Otherwise denies any acute complaints Physical exam General examination - Alert and Oriented 3 in NAD Heart - + S1S2 no murmurs Lungs - Clear to auscultation Abdomen diffuse tenderness to palpate as expected from surgery, hematoma in the right lower quadrant. 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 Improving CTA abdomen and pelvis showed blood products in the Morison's pouch and also small subcutaneous hematoma in the left lower quadrant General Surgery managing and have ordered IR consult for aspiration of the fluid around the liver. Hypokalemia Resolved Urinary retention Resume Flomax 0.4 mg p.o. daily Patient states that he is urinating well Transaminitis Today AST 53, ALT 78 and ALT 50. Improving Okay to resume Lipitor at discharge Acute cholecystitis status post laparoscopic cholecystectomy on 01/26/2024 Continue with IV Unasyn 3 g every 8 hours General Surgery to manage pain Hypertension Continue hydrochlorothiazide 12.5 mg p.o. daily Hyperlipidemia Okay to resume Lipitor on discharge Depression Continue Lexapro 10 mg p.o. daily Insomnia Continue trazodone 50 mg p.o. at bedtime DVT prophylaxis: Encourage ambulation. Lovenox stopped due to the anemia Objective - Vital Signs Vital signs: Vital Signs Temp 98.2 F 01/30/24 07:13 Pulse 81 01/30/24 07:13 Resp 18 01/30/24 10:13 BP 125/73 01/30/24 07:13 Pulse Ox 91 L 01/30/24 07:13 FiO2 Intake & Output 01/29/24 01/30/24 01/30/24 18:59 06:59 18:59 Other: Voiding Method Toilet Urinal # Voids 6 # Bowel Movements 1 - Labs CBC & Chem 7: 01/30/24 05:26 01/29/24 02:35 Labs: Abnormal Lab Results - Last 24 Hours (Table) 01/30/24 Range/Units 05:26 RBC 2.82 L (4.40-5.60) X 10*6/uL Hgb 8.9 L (13.0-17.0) g/dL Hct 26.4 L (39.6-50.0) % MPV 9.2 L (9.5-12.2) FL Eosinophils # 0.44 H (0.04-0.35) X 10*3/uL
[2024-01-30 10:49] LABS: Basophils % (A) 0 %; Eosinophils # (A) 0.3 k/uL (0-0.7); Eosinophils % (A) 5 %; HCT 26.8 % (39.0-53.0); Lymphocytes # (A) 0.9 k/uL (1.0-4.8); Lymphocytes % (A) 12 %; MCH 31.9 pg (25.0-35.0); MCHC 35.4 g/dL (31.0-37.0); MCV 90.2 fL (80.0-100.0); Monocytes # (A) 0.3 k/uL (0-1.0); Monocytes % (A) 5 %; Neutrophils # (A) 5.7 k/uL (1.3-7.7); Neutrophils % (A) 78 %; Platelet Count 283 k/uL (150-450); RBC 2.97 m/uL (4.30-5.90); RDW 14.1 % (11.5-15.5); WBC 7.3 k/uL (3.8-10.6)
[2024-01-30 10:50] LABS: HGB 9.5 gm/dL (13.0-17.5)
[2024-01-30] MEDS: diphenhydrAMINE 25 MG CAP PO PRN (12:25)
--- NOTE | 2024-01-30 14:37 | P.PN ---
Subjective Progress Note Date: 01/30/24 CHIEF COMPLAINT: Acute cholecystitis HISTORY OF PRESENT ILLNESS: Patient is postop day #4 status post laparoscopic cholecystectomy. Patient continues to complain of right sided abdominal pain. He reports that the pain does make walking difficult and he has some shortness of breath. He reports the pain medications do help. Afebrile. No tachycardia. BP stable. WBC is 7.3 hemoglobin is up from 8.9 to 9.5 platelets are 283 PHYSICAL EXAM: VITAL SIGNS: Reviewed. GENERAL: no acute distress. ABDOMEN: Soft. Distended. Ecchymosis along the right side/flank of the abdomen NEUROLOGIC: Alert and oriented. Cranial nerves II through XII grossly intact. ASSESSMENT: 1. Acute cholecystitis 2. Anemia with acute blood loss anemia from surgery. Port site Bleed. IR refused to drain PLAN: -Continue to monitor hemoglobin -Continue to hold Lovenox -Continue low fiber diet -Continue abdominal binder -Continue supportive care -Continue pain management -Encourage patient to ambulate Physician Cigar Head Pegger note has been reviewed by physician. Signing provider agrees with the documented findings, assessment, and plan of care. Objective - Vital Signs Vital signs: Vital Signs Temp 98.1 F 01/30/24 12:53 Pulse 93 01/30/24 12:53 Resp 16 01/30/24 12:53 BP 152/77 01/30/24 12:53 Pulse Ox 91 L 01/30/24 12:53 FiO2 Intake & Output 01/29/24 01/30/24 01/30/24 18:59 06:59 18:59 Intake Total 250 Balance 250 Intake: Oral 250 Other: Voiding Method Toilet Urinal # Voids 6 # Bowel Movements 1 - Labs CBC & Chem 7: 01/30/24 10:03 01/29/24 02:35 Labs: Abnormal Lab Results - Last 24 Hours (Table) 01/30/24 01/30/24 Range/Units 05:26 10:03 RBC 2.82 L 2.97 L (4.40-5.60) X 10*6/uL Hgb 8.9 L 9.5 L D (13.0-17.0) g/dL Hct 26.4 L 26.8 L (39.6-50.0) % MPV 9.2 L (9.5-12.2) FL Lymphocytes # 0.9 L (1.0-4.8) k/uL Eosinophils # 0.44 H (0.04-0.35) X 10*3/uL
[2024-01-31 09:58] LABS: African American GFR (CKD) >90 (>60 ml/min/1.73 sqM); Anion Gap 1 mmol/L; Blood Urea Nitrogen 13 mg/dL (9-20); Calcium 8.4 mg/dL (8.4-10.2); Carbon Dioxide 31 mmol/L (22-30); Chloride 102 mmol/L (98-107); Glucose 124 mg/dL (74-99); Non-African American GFR(CKD) >90 (>60 ml/min/1.73 sqM); Potassium 3.8 mmol/L (3.5-5.1); Sodium 134 mmol/L (137-145)
[2024-01-31] MEDS: LACTULOSE 20 GM/30 ML CUP PO ONE (10:14)
[2024-01-31 10:17] LABS: HCT 23.5 % (39.6-50.0); HGB 7.9 g/dL (13.0-17.0); MCH 31.1 pg (27.0-32.0); MCHC 33.6 g/dL (32.0-37.0); MCV 92.5 FL (80.0-97.0); Mean Platelet Volume 9.1 FL (9.5-12.2); NRBC Per 100 WBC 0 X 10*3/uL (0.00-0.01); Platelet Count 245 X 10*3/uL (140-440); RBC 2.54 X 10*6/uL (4.40-5.60); RDW 13.7 % (11.5-14.5); WBC 8.31 X 10*3/uL (4.50-10.00)
--- NOTE | 2024-01-31 14:44 | P.PN ---
Subjective Progress Note Date: 01/31/24 CHIEF COMPLAINT: Acute cholecystitis HISTORY OF PRESENT ILLNESS: Patient is postop day #5 status post laparoscopic cholecystectomy. Patient is complaining of constipation today. He feels bloated. Denies any nausea or vomiting. He is having flatus. He reports his overall pain is decreasing. He reports that he has a lot of bruising on his abdomen. Hemoglobin today is down from 9.5-7.9 WBC 8.31 PHYSICAL EXAM: VITAL SIGNS: Reviewed. GENERAL: no acute distress. ABDOMEN: Soft. Distended. Significant ecchymosis along the right side and left side of abdomen NEUROLOGIC: Alert and oriented. Cranial nerves II through XII grossly intact. ASSESSMENT: 1. Acute cholecystitis 2. Anemia with acute blood loss anemia from surgery. Port site Bleed. IR refused to drain PLAN: -Continue to monitor hemoglobin. Repeat CBC Now and AM -Close given for constipation -Continue to hold Lovenox -Continue low fiber diet -Continue abdominal binder -Continue supportive care -Continue pain management -Encourage patient to ambulate Physician Campus President note has been reviewed by physician. Signing provider agrees with the documented findings, assessment, and plan of care. Objective - Vital Signs Vital signs: Vital Signs Temp 98.3 F 01/31/24 06:50 Pulse 78 01/31/24 06:50 Resp 17 01/31/24 06:50 BP 136/75 01/31/24 06:50 Pulse Ox 94 L 01/31/24 06:50 FiO2 Intake & Output 01/30/24 01/31/24 01/31/24 18:59 06:59 18:59 Intake Total 600 120 Balance 600 120 Intake: Oral 600 120 Other: Voiding Method Toilet Toilet Urinal Urinal # Voids 3 4 1 # Bowel Movements 1 - Labs CBC & Chem 7: 01/31/24 03:23 01/31/24 09:06 Labs: Abnormal Lab Results - Last 24 Hours (Table) 01/31/24 01/31/24 Range/Units 03:23 09:06 RBC 2.54 L (4.40-5.60) X 10*6/uL Hgb 7.9 L (13.0-17.0) g/dL Hct 23.5 L (39.6-50.0) % MPV 9.1 L (9.5-12.2) FL Sodium 134 L (137-145) mmol/L Carbon Dioxide 31 H (22-30) mmol/L Glucose 124 H (74-99) mg/dL
[2024-01-31 15:16] LABS: HCT 27.1 % (39.0-53.0); HGB 9.4 gm/dL (13.0-17.5); MCH 31.8 pg (25.0-35.0); MCHC 34.8 g/dL (31.0-37.0); MCV 91.4 fL (80.0-100.0); Platelet Count 325 k/uL (150-450); RBC 2.97 m/uL (4.30-5.90); WBC 8.8 k/uL (3.8-10.6)
--- NOTE | 2024-01-31 18:38 | P.PN ---
Subjective Progress Note Date: 01/31/24 Hospital course: Patient is a very pleasant 69-year-old male with a past medical history of hypertension, hyperlipidemia, kidney stones, previously known hiatal hernia. He presented to the hospital on 01/25/2024 with a chief complaint of epigastric pain. He underwent evaluation in the emergency department. CT abdomen and pelvis was completed concerning for acute cholecystitis. Patient was admitted under general surgery team and we were consulted for medical management through out hospitalization. On 01/26/2024 patient underwent laparoscopic cholecystectomy. Patient's hemoglobin downtrending from initial 14.6 and dropped as low as 6.9 requiring transfusion. Patient with postoperative hematoma/bruising believed to be secondary to port site bleeding. Interventional radiology was consulted for possible drainage and declined at this time. Physical exam: Patient seen and fully evaluated at bedside this morning. He reports mild discomfort/abdominal distention but denies any significant pain or complaints. He reports last bowel movement being the day before yesterday. He is tolerating oral intake well and denies having any nausea or vomiting. Vital signs reviewed and stable. General: Nontoxic, no distress and appears stated age. Derm: Skin warm and dry, normal coloration for ethnicity. Patient with large hematoma right lower quadrant and significant bruising to bilateral lower quadrants extending into bilateral flanks. Head: Atraumatic, normocephalic and symmetric. Eyes: EOM's intact, no lid lag, and anicteric sclera Mouth: no lip lesions, mucus membranes moist Cardiovascular: regular rate and rhythm with normal S1S2, no murmur, positive posterior tibial pulses bilaterally, and cap refill < 2 seconds. Lungs: Respirations even, regular, and unlabored on room air. Lungs CTA bilaterally, no rhonchi, no rales, no wheezing, and no accessory muscle usage. Abdominal: soft distended, bowel sounds x 4 quadrants no guarding, no appreciable organomegaly. Laparoscopic incisions intact. Significant bruising to lower abdomen as stated above. Ext: ROM intact. No gross muscle atrophy, no edema, no contractures Neuro: Speech clear, face symmetrical and CN II-XII grossly intact with no noted focal neuro deficits Psych: Alert and oriented to person, place, time, and situation. Appropriate and pleasant affect. Assessment and Plan of Care: Acute surgical blood loss anemia, greater than expected -Status post 1 unit of PRBC on 01/28/2024 currently hemoglobin stable at 9.4. -CTA abdomen and pelvis showed blood products in the Morison's pouch and also small subcutaneous hematoma in the left lower quadrant -General Surgery managing and ordered IR consult for aspiration of the fluid around the liver, however upon discussion with general surgery PA today, I was informed interventional radiology declining procedure at this time. -Patient to be continue to encourage to wear abdominal binder and we will continue to monitor hemoglobin closely and transfuse if indicated for hemoglobin less than 7. -SCDs for DVT prophylaxis. Hypokalemia, resolved Urinary retention, resolved -Continue Flomax 0.4 mg p.o. daily Transaminitis -Improved with total bili of 1.1. AST 53, ALT 78 and alkaline phosphatase of 50. -Okay to resume Lipitor at discharge Acute cholecystitis status post laparoscopic cholecystectomy on 01/26/2024 -Continue with IV Unasyn 3 g every 8 hours -General Surgery following. Hypertension -Continue hydrochlorothiazide 12.5 mg p.o. daily Hyperlipidemia -Okay to resume Lipitor on discharge Depression -Continue Lexapro 10 mg p.o. daily Insomnia -Continue trazodone 50 mg p.o. at bedtime Data and imaging reviewed -Hemoglobin decreased overnight from 9.5 down to 7.9 and upon repeat this afternoon increasing back up to 9.4. -Vital signs reviewed and stable. Blood pressure 136/75, heart rate 78, respiratory rate 17, temp 98.3 F, and SpO2 of 94% on room air. Thank you for allowing us to participate in the care of this pleasant patient. Do not hesitate to contact us with questions. Someone can be reached from the [facility] [place] hospitalist group all hours of the day at [phone] or via perfect serve. Patient was seen independently by Nurse Pracitioner. This document was prepared using [employer] dictation software. Please allow for errors in tugboat captain, while rare they do occur. I reviewed the documentation as provided by the ANA above, who is the original author of this note. I agree with the documented assessment and plan, with the following changes: none Objective - Vital Signs Vital signs: Vital Signs Temp 98.3 F 01/31/24 06:50 Pulse 78 01/31/24 06:50 Resp 17 01/31/24 06:50 BP 136/75 01/31/24 06:50 Pulse Ox 94 L 01/31/24 06:50 FiO2 Intake & Output 01/30/24 01/31/24 01/31/24 18:59 06:59 18:59 Intake Total 600 Balance 600 Intake: Oral 600 Other: Voiding Method Toilet Toilet Urinal Urinal # Voids 3 4 - Labs CBC & Chem 7: 02/01/24 03:15 01/31/24 09:06 Labs: Abnormal Lab Results - Last 24 Hours (Table) 01/30/24 01/30/24 Range/Units 05:26 10:03 RBC 2.82 L 2.97 L (4.40-5.60) X 10*6/uL Hgb 8.9 L 9.5 L D (13.0-17.0) g/dL Hct 26.4 L 26.8 L (39.6-50.0) % MPV 9.2 L (9.5-12.2) FL Lymphocytes # 0.9 L (1.0-4.8) k/uL Eosinophils # 0.44 H (0.04-0.35) X 10*3/uL
[2024-02-01 04:27] LABS: HCT 29.2 % (39.0-53.0); MCH 32.4 pg (25.0-35.0); MCHC 34.1 g/dL (31.0-37.0); MCV 94.9 fL (80.0-100.0); Mean Platelet Volume 6.6; Platelet Count 360 k/uL (150-450); RBC 3.08 m/uL (4.30-5.90); RDW 14.3 % (11.5-15.5); WBC 8.2 k/uL (3.8-10.6)
[2024-02-01 10:36] LABS: Magnesium 2.1 mg/dL (1.5-2.4)
--- NOTE | 2024-02-01 11:31 | P.PN ---
Progress Note - Text Progress Note Date: 02/01/24 CHIEF COMPLAINT: Acute cholecystitis HISTORY OF PRESENT ILLNESS: Patient is postop day #6 status post laparoscopic cholecystectomy. Patient feels good. He has noted bruising on his abdominal wall which I explained to him is going to get worse before it gets better. PHYSICAL EXAM: VITAL SIGNS: Reviewed. GENERAL: no acute distress. ABDOMEN: Soft. Distended. Significant ecchymosis along the right side and left side of abdomen NEUROLOGIC: Alert and oriented. Cranial nerves II through XII grossly intact. ASSESSMENT: 1. Acute cholecystitis 2. Anemia with acute blood loss anemia from surgery. Port site Bleed. IR refused to drain PLAN: -Continue to monitor hemoglobin. Hgb stable -Close given for constipation -Continue to hold Lovenox -Continue low fiber diet -Continue abdominal binder -Continue supportive care -Continue pain management -Encourage patient to ambulate -Anticipate discharge in next 24-48 hours Jose A Harp DO [facility] [phone]
[2024-02-01 12:01] LABS: BUN/Creat Ratio 14.44 Ratio (12.00-20.00); Chloride 100 mmol/L (96-109); Glucose 88 mg/dL (70-110); Potassium 4.2 mmol/L (3.5-5.5); Sodium 138 mmol/L (135-145)
[2024-02-01 12:02] LABS: ALT 53 U/L (10-49); AST 48 U/L (14-35); Albumin 3.8 g/dL (3.8-4.9); Albumin/Globulin Ratio 1.73 Ratio (1.60-3.17); Alkaline Phosphatase 71 U/L (41-126); Carbon Dioxide 27.5 mmol/L (21.6-31.8); Globulin 2.2 g/dL (1.6-3.3); Total Bilirubin 2.5 mg/dL (0.3-1.2)
--- NOTE | 2024-02-01 15:00 | P.PN ---
Subjective Progress Note Date: 02/01/24 Hospital course: Patient is a very pleasant 69-year-old male with a past medical history of hypertension, hyperlipidemia, kidney stones, previously known hiatal hernia. He presented to the hospital on 01/25/2024 with a chief complaint of epigastric pain. He underwent evaluation in the emergency department. CT abdomen and pelvis was completed concerning for acute cholecystitis. Patient was admitted under general surgery team and we were consulted for medical management throughout hospitalization. On 01/26/2024 patient underwent laparoscopic cholecystectomy. Patient's hemoglobin downtrending from initial 14.6 and dropped as low as 6.9 requiring transfusion. Patient with postoperative hematoma/bruising believed to be secondary to port site bleeding. Interventional radiology was consulted for possible drainage and declined at this time. Physical exam: Patient seen and fully evaluated at bedside this morning. He reports mild discomfort/abdominal distention and newly developed concerns for bruising/ecchymosis to his scrotum. Patient reports last bowel movement was yesterday and states he is tolerating oral intake. Vital signs reviewed and stable. General: Nontoxic, no distress and appears stated age. Derm: Skin warm and dry, normal coloration for ethnicity. Patient with moderate ecchymosis to right lower quadrant extending into to bilateral lower quadrants/flanks, right hip, and groin. Head: Atraumatic, normocephalic and symmetric. Eyes: EOM's intact, no lid lag, and anicteric sclera Mouth: no lip lesions, mucus membranes moist Cardiovascular: regular rate and rhythm with normal S1S2, no murmur, positive posterior tibial pulses bilaterally, and cap refill < 2 seconds. Lungs: Respirations even, regular, and unlabored on room air. Lungs CTA bilaterally, no rhonchi, no rales, no wheezing, and no accessory muscle usage. Abdominal: soft distended, bowel sounds x 4 quadrants no guarding, no appr eciable organomegaly. Laparoscopic incisions intact. Significant bruising to lower abdomen/flanks and groin as stated above. Ext: ROM intact. No gross muscle atrophy, no edema, no contractures Neuro: Speech clear, face symmetrical and CN II-XII grossly intact with no noted focal neuro deficits Psych: Alert and oriented to person, place, time, and situation. Appropriate and pleasant affect. Assessment and Plan of Care: Acute surgical blood loss anemia, greater than expected -Status post 1 unit of PRBC on 01/28/2024 currently hemoglobin stable at 10.0. -CTA abdomen and pelvis showed blood products in the Morison's pouch and also small subcutaneous hematoma in the left lower quadrant -General Surgery managing and ordered IR consult for aspiration of the fluid around the liver, however it was reported that interventional radiology declining to complete procedure. -Patient to be continue to encourage to wear abdominal binder and we will continue to monitor hemoglobin closely and transfuse if indicated for hemoglobin less than 7. -SCDs for DVT prophylaxis. Hypokalemia, resolved Urinary retention, resolved -Continue Flomax 0.4 mg p.o. daily Transaminitis -Lipid profile showing an elevated total bili of 2.5, AST of 48, ALT of 53, and alkaline phosphatase of 71. -Okay to resume Lipitor at discharge Acute cholecystitis status post laparoscopic cholecystectomy on 01/26/2024 -Continue with IV Unasyn 3 g every 8 hours -General Surgery following. Hypertension -Continue hydrochlorothiazide 12.5 mg p.o. daily Hyperlipidemia -Okay to resume Lipitor on discharge Depression -Continue Lexapro 10 mg p.o. daily Insomnia -Continue trazodone 50 mg p.o. at bedtime Data and imaging reviewed -Morning labs reviewed. CBC showing stable hemoglobin of 10.0. BMP unremarkable. Blood glucose 88. Liver profile showing elevated total bili of 2 .5, AST of 48, ALT of 53, and alkaline phosphatase of 71. -Vital signs reviewed and stable. Blood pressure 143/77, heart rate 78, respiratory rate 17, temp 97.5 F, and SpO2 of 93% on room air. Thank you for allowing us to participate in the care of this pleasant patient. Do not hesitate to contact us with questions. Someone can be reached from the [facility] hospitalist group all hours of the day at [phone] or via [employer] serve. Patient was seen independently by Nurse Pracitioner. This document was prepared using [employer] dictation software. Please allow for errors in skirt clipper, while rare they do occur. I reviewed the documentation as provided by the ANA above, who is the original author of this note. I agree with the documented assessment and plan, with the following changes: none Objective - Vital Signs Vital signs: Vital Signs Temp 97.5 F L 10/19/24 06:50 Pulse 78 02/01/24 06:50 Resp 17 02/01/24 06:50 BP 143/77 02/01/24 06:50 Pulse Ox 93 L 02/01/24 06:50 FiO2 Intake & Output 01/31/24 02/01/24 02/01/24 18:59 06:59 18:59 Intake Total 120 Balance 120 Intake: Oral 120 Other: # Voids 1 # Bowel Movements 1 - Labs CBC & Chem 7: 02/01/24 03:15 02/01/24 03:15 Labs: Abnormal Lab Results - Last 24 Hours (Table) 01/31/24 01/31/24 01/31/24 Range/Units 03:23 09:06 14:52 RBC 2.54 L 2.97 L (4.40-5.60) X 10*6/uL Hgb 7.9 L 9.4 L (13.0-17.0) g/dL Hct 23.5 L 27.1 L (39.6-50.0) % MPV 9.1 L (9.5-12.2) FL Sodium 134 L (137-145) mmol/L Carbon Dioxide 31 H (22-30) mmol/L Glucose 124 H (74-99) mg/dL 02/01/24 Range/Units 03:15 RBC 3.08 L (4.40-5.60) X 10*6/uL Hgb 10.0 L (13.0-17.0) g/dL Hct 29.2 L (39.6-50.0) % MPV (9.5-12.2) FL Sodium (137-145) mmol/L Carbon Dioxide (22-30) mmol/L Glucose (74-99) mg/dL
--- NOTE | 2024-02-02 05:03 | P.PN ---
Progress Note - Text Progress Note Date: 02/02/24 CHIEF COMPLAINT: Acute cholecystitis HISTORY OF PRESENT ILLNESS: Patient is postop day #7 status post laparoscopic cholecystectomy. Patient feels good. He has noted bruising on his abdominal wall which I explained to him is going to get worse before it gets better. PHYSICAL EXAM: VITAL SIGNS: Reviewed. GENERAL: no acute distress. ABDOMEN: Soft. Distended. Significant ecchymosis along the right side and left side of abdomen NEUROLOGIC: Alert and oriented. Cranial nerves II through XII grossly intact. ASSESSMENT: 1. Acute cholecystitis 2. Anemia with acute blood loss anemia from surgery. Port site Bleed. IR refused to drain PLAN: -Continue to monitor hemoglobin. Hgb stable -Close given for constipation -Continue to hold Lovenox -Continue low fiber diet -Continue abdominal binder -Continue supportive care -Continue pain management -Encourage patient to ambulate -Patient will can be discharged tomorrow 02/02 if Hgb remains stable Jose A Harp DO [facility] [phone]
[2024-02-02 09:46] LABS: Basophils # (A) 0.03 X 10*3/uL (0.00-0.10); Basophils % (A) 0.4 %; Eosinophils # (A) 0.53 X 10*3/uL (0.04-0.35); Eosinophils % (A) 6.7 %; HCT 26.4 % (39.6-50.0); HGB 8.8 g/dL (13.0-17.0); Lymphocytes # (A) 1.01 X 10*3/uL (0.90-5.00); Lymphocytes % (A) 12.7 %; MCH 31.4 pg (27.0-32.0); MCHC 33.3 g/dL (32.0-37.0); MCV 94.3 FL (80.0-97.0); Monocytes # (A) 0.97 X 10*3/uL (0.20-1.00); Monocytes % (A) 12.2 %; NRBC Per 100 WBC 0 X 10*3/uL (0.00-0.01); Neutrophils # (A) 5.39 X 10*3/uL (1.80-7.70); Neutrophils % (A) 67.6 %; Platelet Count 316 X 10*3/uL (140-440); RDW 14.2 % (11.5-14.5); WBC 7.96 X 10*3/uL (4.50-10.00)
[2024-02-02 12:22] LABS: Magnesium 2.1 mg/dL (1.5-2.4)
[2024-02-02 12:41] LABS: ALT 41 U/L (10-49); AST 47 U/L (14-35); Albumin 3.4 g/dL (3.8-4.9); Albumin/Globulin Ratio 1.62 Ratio (1.60-3.17); Alkaline Phosphatase 67 U/L (41-126); BUN/Creat Ratio 18.12 Ratio (12.00-20.00); Blood Urea Nitrogen 14.5 mg/dL (9.0-27.0); Calcium 8.6 mg/dL (8.7-10.3); Carbon Dioxide 27.1 mmol/L (21.6-31.8); Chloride 102 mmol/L (96-109); Globulin 2.1 g/dL (1.6-3.3); Glucose 99 mg/dL (70-110); Potassium 3.7 mmol/L (3.5-5.5); Sodium 138 mmol/L (135-145); Total Bilirubin 2.2 mg/dL (0.3-1.2); Total Protein 5.5 g/dL (6.2-8.2)
--- NOTE | 2024-02-02 14:49 | P.PN ---
Subjective Progress Note Date: 02/02/24 Hospital course: Patient is a very pleasant 69-year-old male with a past medical history of hypertension, hyperlipidemia, kidney stones, previously known hiatal hernia. He presented to the hospital on 01/25/2024 with a chief complaint of epigastric pain. He underwent evaluation in the emergency department. CT abdomen and pelvis was completed concerning for acute cholecystitis. Patient was admitted under general surgery team and we were consulted for medical management throughout hospitalization. On 01/26/2024 patient underwent laparoscopic cholecystectomy. Patient's hemoglobin downtrending from initial 14.6 and dropped as low as 6.9 requiring transfusion. Patient with postoperative hematoma/bruising believed to be secondary to port site bleeding. Interventional radiology was consulted for possible drainage and declined at this time. Physical exam: Patient seen and fully evaluated at bedside this morning. He was wearing his abdominal binder this morning and sitting up in chair at bedside. He reports a bit more abdominal discomfort/abdominal distention to right side of abdomen, ecchymosis seems to be slightly lightening/improving and patient denies having any worsening or changes in ecchymosis to his scrotum and denies any testicular swelling or pain. Vital signs reviewed and stable. General: Nontoxic, no distress and appears stated age. Derm: Skin warm and dry, normal coloration for ethnicity. Patient with moderate ecchymosis to right lower quadrant extending into to bilateral lower quadrants/flanks, right hip, and groin. Head: Atraumatic, normocephalic and symmetric. Eyes: EOM's intact, no lid lag, and anicteric sclera Mouth: no lip lesions, mucus membranes moist Cardiovascular: regular rate and rhythm with normal S1S2, no murmur, positive posterior tibial pulses bilaterally, and cap refill < 2 seconds. Lungs: Respirations even, regular, and unlabored on room air. Lungs CTA bilaterally, no rhonchi, no rales, no wheezing, and no accessory muscle usage. Abdominal: soft distended, bowel sounds x 4 quadrants no guarding, no appreciable organomegaly. Laparoscopic incisions intact. Significant bruising to lower abdomen/flanks and groin as stated above. Ext: ROM intact. No gross muscle atrophy, no edema, no contractures Neuro: Speech clear, face symmetrical and CN II-XII grossly intact with no noted focal neuro deficits Psych: Alert and oriented to person, place, time, and situation. Appropriate and pleasant affect. Assessment and Plan of Care: Acute post-surgical blood loss anemia, greater than expected -Status post 1 unit of PRBC on 01/28/2024 currently hemoglobin stable at 8.8. Order placed for repeat CBC this afternoon and again tomorrow morning. If decreases any further may consider repeating CT. -CTA abdomen and pelvis showed blood products in the Morison's pouch and also small subcutaneous hematoma in the left lower quadrant -General Surgery managing and ordered IR consult for aspiration of the fluid around the liver, however it was reported that interventional radiology declining to complete procedure. -Continue to encourage patient to wear abdominal binder and we will continue to monitor hemoglobin closely and transfuse if indicated for hemoglobin less than 7. -SCDs for DVT prophylaxis. Hypokalemia, resolved Urinary retention, resolved -Continue Flomax 0.4 mg p.o. daily Transaminitis -Lipid profile improving showing an elevated total bili of 2.2, AST of 47, ALT of 41, and alkaline phosphatase of 67.. -Okay to resume Lipitor at discharge Acute cholecystitis status post laparoscopic cholecystectomy on 01/26/2024 -Completed IV antibiotic course with Unasyn. -General Surgery following, reviewed documentation in chart. Hypertension -Continue hydrochlorothiazide 12.5 mg p.o. daily Hyperlipidemia -Okay to resume Lipitor on discharge Depression -Continue Lexapro 10 mg p.o. daily Insomnia -Continue trazodone 50 mg p.o. at bedtime Data and imaging reviewed -Morning labs reviewed. CBC showing slight decrease in hemoglobin from 10.0 down to 8.8 this morning. BMP was unremarkable. Blood glucose 99. Liver profile showing elevated total bili of 2.2 and AST of 47 otherwise normal findings. -Vital signs reviewed and stable. Blood pressure 128/91, heart rate 86, respiratory rate 17, temp 97.9 F, and SpO2 of 95% on room air. Thank you for allowing us to participate in the care of this pleasant patient. Do not hesitate to contact us with questions. Someone can be reached from the [facility][Note 3] hospitalist group all hours of the day at [phone] or via perfect serve. Patient was seen independently by Nurse Pracitioner. This document was prepared using [employer] dictation software. Please allow for errors in mixer operator raw salt, while rare they do occur. I reviewed the documentation as provided by the ANA above, who is the original author of this note. I agree with the documented assessment and plan, with the following changes: none Objective - Vital Signs Vital signs: Vital Signs Temp 98.2 F 02/02/24 02:04 Pulse 78 02/02/24 02:04 Resp 16 02/02/24 02:04 BP 135/73 02/02/24 02:04 Pulse Ox 90 L 02/02/24 02:04 FiO2 Intake & Output 02/01/24 02/02/24 02/02/24 18:59 06:59 18:59 Intake Total 200 2700 Balance 200 2700 Intake: Oral 200 2700 Other: Voiding Method Toilet # Voids 3 5 - Labs CBC & Chem 7: 02/02/24 03:25 02/02/24 03:25 Labs: Abnormal Lab Results - Last 24 Hours (Table) 02/01/24 Range/Units 03:15 Total Bilirubin 2.5 H (0.3-1.2) mg/dL AST 48 H (14-35) U/L ALT 53 H (10-49) U/L Total Protein 6.0 L (6.2-8.2) g/dL
[2024-02-02 16:14] LABS: HCT 29.8 % (39.0-53.0); HGB 10.2 gm/dL (13.0-17.5); MCHC 34.2 g/dL (31.0-37.0); MCV 93.7 fL (80.0-100.0); Mean Platelet Volume 7.1; Platelet Count 405 k/uL (150-450); Poikilocytosis Slight; RBC 3.19 m/uL (4.30-5.90); RDW 15.1 % (11.5-15.5); WBC 7.5 k/uL (3.8-10.6)
[2024-02-03 03:14] VITALS: RESP 16
[2024-02-03 08:32] LABS: HCT 29.7 % (39.6-50.0); HGB 9.8 g/dL (13.0-17.0); MCH 31.7 pg (27.0-32.0); MCV 96.1 FL (80.0-97.0); Mean Platelet Volume 8.8 FL (9.5-12.2); NRBC Per 100 WBC 0 X 10*3/uL (0.00-0.01); Platelet Count 383 X 10*3/uL (140-440); RBC 3.09 X 10*6/uL (4.40-5.60); RDW 14.4 % (11.5-14.5); WBC 7.94 X 10*3/uL (4.50-10.00)
[2024-02-03 09:22] LABS: ALT 40 U/L (10-49); AST 47 U/L (14-35); Albumin 3.8 g/dL (3.8-4.9); Albumin/Globulin Ratio 1.73 Ratio (1.60-3.17); Alkaline Phosphatase 76 U/L (41-126); BUN/Creat Ratio 18.22 Ratio (12.00-20.00); Blood Urea Nitrogen 16.4 mg/dL (9.0-27.0); Calcium 8.7 mg/dL (8.7-10.3); Carbon Dioxide 20.9 mmol/L (21.6-31.8); Chloride 97 mmol/L (96-109); Globulin 2.2 g/dL (1.6-3.3); Glucose 139 mg/dL (70-110); Magnesium 2.1 mg/dL (1.5-2.4); Potassium 3.8 mmol/L (3.5-5.5); Sodium 136 mmol/L (135-145); Total Bilirubin 1.9 mg/dL (0.3-1.2)
[2024-02-03] MEDS: PROCHLORPERAZINE INJ 10 MG/2 ML VIAL IVP STA (10:36)
[2024-02-03] MEDS: diphenhydrAMINE 50 MG/ML 1 ML VIAL IVP STA (10:36)
[2024-02-03] MEDS: ACETAMINOPHEN TAB 500 MG TAB PO STA (10:36)
--- NOTE | 2024-02-03 11:42 | P.DS ---
Providers Date of admission: 01/27/24 14:24 Expected date of discharge: 02/03/24 Attending physician: Jose A Harp DO Consults: 01/25/24 09:24 Consult Physician Routine Consulting Provider: Brenda Olivo Consult Reason/Comments: Medical Management Do you want consulting provider notified?: Yes [facility] Course: Discharge diagnosis 1. Acute cholecystitis 2. Anemia with acute blood loss anemia from surgery. Port site Bleed. Hospital course This is a 69-year-old male diagnosed with acute cholecystitis. He is status post laparoscopic cholecystectomy. Patient had postoperative bleeding, likely bleeding from the port site. He did require a blood transfusion. Hemoglobin is stable. Patient is ambulating. His pain is controlled. He is tolerating diet. He is having bowel movements. He is afebrile. He has ecchymosis that is located in both sides of the abdomen. He is stable for discharge. Please refer to chart for any further details. Physician Trimmer Operator Three Knife note has been reviewed by physician. Signing provider agrees with the documented findings, assessment, and plan of care. Attestation Patient seen and examined at bedside.patient did have cholecystectomy performed during this admission. Postoperatively, with some bleeding. He has ecchymosis at the flanks of the abdomen and on both sides of the abdomen. This appears to be improving. He states pain is improved. He is surgically stable for discharge. Hemoglobin has been stable. Jaxson Valdivia DO Patient Condition at Discharge: Stable Plan - Discharge Summary New Discharge Prescriptions: New Docusate [Colace] 100 mg PO BID #30 capsule HYDROcodone/APAP 7.5-325MG [[place] 7.5-325] 1 tab PO Q6HR PRN 3 Days #12 tab PRN Reason: Pain Continue Atorvastatin [Lipitor] 20 mg PO HS Escitalopram [Lexapro] 10 mg PO DAILY hydroCHLOROthiazide [Hydrodiuril] 25 mg PO DAILY traZODone HCL [Desyrel] 50 - 75 mg PO HS Discharge Medication List Atorvastatin [Lipitor] 20 mg PO HS 01/25/24 [History] Escitalopram [Lexapro] 10 mg PO DAILY 01/25/24 [History] hydroCHLOROthiazide [Hydrodiuril] 25 mg PO DAILY 01/25/24 [History] traZODone HCL [Desyrel] 50 - 75 mg PO HS 01/25/24 [History] Docusate [Colace] 100 mg PO BID #30 capsule 02/03/24 [Rx] HYDROcodone/APAP 7.5-325MG [[place] 7.5-325] 1 tab PO Q6HR PRN 3 Days #12 tab 02/03/24 [Rx] Follow up Appointment(s)/Referral(s): Jose A Harp DO [Medical Doctor] - 02/11/24 10:15 am Michael Worthy DO [Primary Care Provider] - 02/05/24 3:20 pm (at [facility]) Patient Instructions/Handouts: Abdominal Pain (ED) Activity/Diet/Wound Care/Special Instructions: No driving while taking [place] No lifting over 10 pounds You may shower. No soaking or tub baths for 2 weeks Very light activity until you are reevaluated at your follow up appointment with your surgeon Continue a low-fat diet Recommend not taking Lipitor due to increased bleeding risk until seen by surgeon Discharge Disposition: HOME SELF-CARE
[2024-02-03] MEDS: BUTALB/APAP/CAFF 50-325-40MG TAB PO PRN (12:34)
--- NOTE | 2024-02-03 13:22 | CT ---
EXAMINATION TYPE: CT brain wo con CT DLP: 1129.5 mGycm, Automated exposure control for dose reduction was used. DATE OF EXAM: 02/03/2024 1:15 PM COMPARISON: None. CLINICAL INDICATION:Male, 69 years old with history of intractable headache, Intractable headache TECHNIQUE: Brain: Multiple axial CT images of the brain were obtained without IV contrast. . Coronal and sagitta l reformats reviewed. FINDINGS: Brain: Extra-axial spaces: No abnormal extra-axial fluid collections. Ventricular system: Within normal limits Cerebral parenchyma: No acute intraparenchymal hemorrhage or mass effect. The samuels-white junction is well differentiated. Scattered hypoattenuating areas are seen within the periventricular white matte r. Cerebellum: Unremarkable. Mass effect: No evidence of midline shift. Intracranial vasculature: unremarkable Soft tissues: Normal. Calvarium/osseous structures: No depressed skull fracture. Paranasal sinuses and mastoid air cells: Postsurgical changes from right mastoidectomy and partial op acification remaining mastoid air cells. Left mastoid air cells are clear. Postsurgical changes of th e medial shafer of the bilateral maxillary sinuses. Aplasia of the right frontal sinus. Mild mucosal t hickening of the left frontal sinus. Moderate mucosal thickening of the right maxillary sinus. The le ft maxillary sinus is clear. Sphenoid sinuses are clear. Mild mucosal thickening of the bilateral ant erior ethmoid sinuses. Visualized orbits: Orbital contents are intact. IMPRESSION: 1. No acute intracranial process. 2. Nonspecific white matter changes, likely secondary to chronic small vessel ischemic disease. 3. Postsurgical changes from partial right mastoidectomy and bilateral maxillary antrostomy. Moderate mucosal sinus disease within the main maxilla sinus. Mild within the left frontal and ethmoid sinuse s. [facility], , 02/03/2024 1:20 PM
--- NOTE | 2024-02-03 14:38 | P.PN ---
Subjective Progress Note Date: 02/03/24 Hospital course: Patient is a very pleasant 69-year-old male with a past medical history of hypertension, hyperlipidemia, kidney stones, previously known hiatal hernia. He presented to the hospital on 01/25/2024 with a chief complaint of epigastric pain. He underwent evaluation in the emergency department. CT abdomen and pelvis was completed concerning for acute cholecystitis. Patient was admitted under general surgery team and we were consulted for medical management throughout hospitalization. On 01/26/2024 patient underwent laparoscopic cholecystectomy. Patient's hemoglobin downtrending from initial 14.6 and dropped as low as 6.9 requiring transfusion. Patient with postoperative hematoma/bruising believed to be secondary to port site bleeding. Interventional radiology was consulted for possible drainage and declined at this time. Physical exam: Patient seen and fully evaluated at bedside this morning. Reports he has been wearing his abdominal binder and states having a bit of improvement of abdominal pain this morning. He denies any worsening of bruising to scrotum and upon assessment of abdomen bruising seems to be slightly improving. Vital signs reviewed and stable. General: Nontoxic, no distress and appears stated age. Derm: Skin warm and dry, normal coloration for ethnicity. Patient with moderate ecchymosis to right lower quadrant extending into to bilateral lower quadrants/flanks, right hip, and groin. Head: Atraumatic, normocephalic and symmetric. Eyes: EOM's intact, no lid lag, and anicteric sclera Mouth: no lip lesions, mucus membranes moist Cardiovascular: regular rate and rhythm with normal S1S2, no murmur, positive posterior tibial pulses bilaterally, and cap refill < 2 seconds. Lungs: Respirations even, regular, and unlabored on room air. Lungs CTA bilaterally, no rhonchi, no rales, no wheezing, and no accessory muscle usage. Abdominal: soft distended, bowel sounds x 4 quadrants no guarding, no appreciable organomegaly. Laparoscopic incisions intact. Significant bruising to lower abdomen/flanks and groin as stated above. Ext: ROM intact. No gross muscle atrophy, no edema, no contractures Neuro: Speech clear, face symmetrical and CN II-XII grossly intact with no noted focal neuro deficits Psych: Alert and oriented to person, place, time, and situation. Appropriate and pleasant affect. Assessment and Plan of Care: Acute post-surgical blood loss anemia, greater than expected -Status post 1 unit of PRBC on 01/28/2024 currently hemoglobin stable at 8.8. Order placed for repeat CBC this afternoon and again tomorrow morning. If decreases any further may consider repeating CT. -CTA abdomen and pelvis showed blood products in the Morison's pouch and also small subcutaneous hematoma in the left lower quadrant -General Surgery managing and ordered IR consult for aspiration of the fluid around the liver, however it was reported that interventional radiology declining to complete procedure. -Continue to encourage patient to wear abdominal binder and we will continue to monitor hemoglobin closely and transfuse if indicated for hemoglobin less than 7. -SCDs for DVT prophylaxis. Hypokalemia, resolved Urinary retention, resolved -Continue Flomax 0.4 mg p.o. daily Transaminitis improved -Lipid profile improving total bili of 1.9, AST of 47, ALT of 40, and alkaline phosphatase of 76. -Okay to resume Lipitor at discharge Acute cholecystitis status post laparoscopic cholecystectomy on 01/26/2024 -Completed IV antibiotic course with Unasyn. -General Surgery following, reviewed documentation in chart. Hypertension -Continue hydrochlorothiazide 12.5 mg p.o. daily Hyperlipidemia -Okay to resume Lipitor on discharge Depression -Continue Lexapro 10 mg p.o. daily Insomnia -Continue trazodone 50 mg p.o. at bedtime Data and imaging reviewed -Morning labs reviewed. CBC showing stable hemoglobin at 9.8. BMP showing bicarb of 20.9 and anion gap elevated at 18.10. Blood glucose 139. Liver profile showing elevated total bili of 1.9 and AST of 47 otherwise normal findings. -Vital signs reviewed and stable. Blood pressure 30/74, heart rate 97, respiratory rate 16, temp 97.6 F, and SpO2 of 93% on room air. Thank you for allowing us to participate in the care of this pleasant patient. Do not hesitate to contact us with questions. Someone can be reached from the [facility] hospitalist group all hours of the day at [phone] or via perfect serve. Patient was seen independently by Nurse Pracitioner. This document was prepared using [employer] dictation software. Please allow for errors in beauty parlor cleaner, while rare they do occur. I reviewed the documentation as provided by the ANA above, who is the original author of this note. I agree with the documented assessment and plan, with the following changes: none Objective - Vital Signs Vital signs: Vital Signs Temp 98.2 F 02/03/24 01:50 Pulse 89 02/03/24 01:50 Resp 16 02/03/24 01:50 BP 109/67 02/03/24 01:50 Pulse Ox 94 L 02/03/24 01:50 FiO2 Intake & Output 02/02/24 02/03/24 02/03/24 18:59 06:59 18:59 Intake Total 560 1690 Balance 560 1690 Intake: Oral 560 1690 Other: Voiding Method Toilet # Voids 3 4 - Labs CBC & Chem 7: 02/03/24 02:19 02/03/24 02:19 Labs: Abnormal Lab Results - Last 24 Hours (Table) 02/02/24 02/02/24 02/02/24 Range/Units 03:25 03:25 15:54 RBC 2.80 L 3.19 L (4.40-5.60) X 10*6/uL Hgb 8.8 L 10.2 L (13.0-17.0) g/dL Hct 26.4 L 29.8 L (39.6-50.0) % MPV 9.0 L (9.5-12.2) FL Eosinophils # 0.53 H (0.04-0.35) X 10*3/uL Calcium 8.6 L (8.7-10.3) mg/dL Total Bilirubin 2.2 H (0.3-1.2) mg/dL AST 47 H (14-35) U/L Total Protein 5.5 L (6.2-8.2) g/dL Albumin 3.4 L (3.8-4.9) g/dL 02/03/24 Range/Units 02:19 RBC 3.09 L (4.40-5.60) X 10*6/uL Hgb 9.8 L (13.0-17.0) g/dL Hct 29.7 L (39.6-50.0) % MPV 8.8 L (9.5-12.2) FL Eosinophils # (0.04-0.35) X 10*3/uL Calcium (8.7-10.3) mg/dL Total Bilirubin (0.3-1.2) mg/dL AST (14-35) U/L Total Protein (6.2-8.2) g/dL Albumin (3.8-4.9) g/dL
[2024-02-03 15:14] VITALS: BP 121/69; PULSE 78; TEMP 97.8
[2024-02-03 16:13] VITALS: BMI 27.3
--- NOTE | 2024-02-14 11:33 | CDI ---
Documentation Clarification Form Date: 02.14.24 From: PONCE Oliver Admit Date: 01/27/2024 02:24:00 PM Patient Name: Mitch Giron Visit Number: [id number] Discharge Date: 02/03/2024 05:45:00 PM ATTENTION: The Clinical Documentation Specialists (CDI) and [facility] Coding Staff appreciate your assistance in clarifying documentation. Please respond to the clarification below the line at the bottom and electronically sign. The CDI & [facility] Coding staff will review the response and follow-up if needed. Please note: Queries are made part of the Legal Health Record. If you have any questions, please contact the author of this message via ITS. Doctor/Provider: Jose A Harp The final diagnosis of the pathology report states: Acute and chronic cholecystitis with cholelithiasis. Coding guidelines do not allow coding professionals to code based on pathology results; therefore, clarification is requested. History/risk factors: Patient presented to the ER with complaint of epigastric abdominal pain. He was admitted with plans for cholecystectomy. Clinical Indicators: CT of the abdomen showed gallbladder wall thickening and stones concerning for cholecystitis. Treatment: Lap Cholecystectomy Please clarify if you agree with the pathology report diagnosis of Acute and chronic cholecystitis with cholelithiasis : [x ] Yes [ ] No [ ] Other (please specify) [ ] Unable to determine MTDD
== END 2024-02-03 17:45 | disposition home or self-care (01) | DRG 418 ==
LOC: EC 00:32 → 4SSUR 04:57 → OBSVTOIN 01-27 14:24 → 4SSUR 01-30 21:01
PROVIDERS: ADMIT Surgery; ATTEND Surgery
PROC: 0FT44ZZ Resection of Gallbladder, Percutaneous Endoscopic Approach (ICD-10-PCS; principal; 2024-01-26 09:18)
PROC: 30233N1 Transfusion of Nonautologous Red Blood Cells into Peripheral Vein, Percutaneous Approach (ICD-10-PCS; 2024-01-28)
DX: K80.12 Calculus of gallbladder with acute and chronic cholecystitis without obstruction (principal); D62 Acute posthemorrhagic anemia; E78.5 Hyperlipidemia, unspecified; E87.6 Hypokalemia; F32.A Depression, unspecified; G47.00 Insomnia, unspecified; I10 Essential (primary) hypertension; R74.01 Elevation of levels of liver transaminase levels; K59.00 Constipation, unspecified; R33.9 Retention of urine, unspecified; Z79.899 Other long term (current) drug therapy
CPT/HCPCS: 36415; 70450; 74177; 76705; 80048; 80053; 80076; 81003; 82150; 83605; 83690; 83735; 84100; 85025; 85027; 86850; 86900; 86901; 86920; 88304; 93005; 96361; 96365; 96375; 99285